=== PATIENT | female | born 1965 | race Caucasian/White ===

== ENCOUNTER → 2017-02-21 | Outpatient (CLI) | payer BC ==
[~2017-02-21] MED LIST: CALC-354 PO; DIGO0.2519 PO; HYDR-3419 PO; MULT-506 PO; OXYC-57 PO
[2017-02-21 17:53] LABS: URINE APPEARANCE CLEAR (CLEAR); URINE BILIRUBIN NEG (NEG); URINE COLOR YELLOW; URINE EPITHELIAL CELL AUTO >30 /lpf (0-5); URINE NITRITE NEG (NEG); URINE SPECIFIC GRAVITY 1.021 (1.000-1.030); UROBILINOGEN NEG (NEG)
[2017-02-21 18:05] LABS: BASO % 0.7 %; BASO ABS # 0.04 K/uL (0-0.2); COMPLETE YES; EOS % 0.8 %; IG% 0.2 %; LYMPH % 28.2 %; LYMPH ABS # 1.68 K/uL (1.2-3.4); MEAN CELL VOLUME 86.1 fL (80-100); MEAN CORPUSCULAR HEMOGLOBIN 29.6 pg (25-34); MEAN CORPUSCULAR HGB CONC 34.4 g/dl (32-36); MEAN PLATELET VOLUME 10.4 fL (7.4-10.4); MONO % 12.3 %; NEUT % 57.8 %; PLATELET COUNT 231 K/uL (130-400); RED BLOOD COUNT 4.53 M/uL (4.2-5.4); WHITE BLOOD COUNT 5.95 K/uL (4.8-10.8)
[2017-02-21 18:22] LABS: MANUAL MICROSCOPIC REQUIRED? NO; REVIEW REQ? NO
[2017-02-21 19:03] LABS: BLOOD UREA NITROGEN 12 mg/dl (7-18); BUN/CREATININE RATIO 15.1 (10-20); CARBON DIOXIDE 32 mmol/L (21-32); CHLORIDE 105 mmol/L (98-107); CREATININE 0.79 mg/dl (0.60-1.20); GLUCOSE 79 mg/dl (70-99); POTASSIUM 3.9 mmol/L (3.5-5.1); SODIUM 142 mmol/L (136-145)
== END | disposition home or self-care (01) ==
LOC: C.LABMFLN 14:06
PROVIDERS: ATTEND Family Medicine
DX: R19.00 Intra-abdominal and pelvic swelling, mass and lump, unspecified site (principal)

== ENCOUNTER → 2017-02-22 | Outpatient (CLI) | payer BC ==
--- NOTE | 2017-02-22 11:47 | DIAGNOSTIC IMAGING REPORT ---
PELVIC ULTRASOUND, TRANSABDOMINAL AND TRANSVAGINAL HISTORY: PELVIC MASS COMPARISON: None. FINDINGS: Uterus: Surgically absent. Right ovary: 2.5 x 1.2 x 2.3 cm. This demonstrates normal color flow. Left ovary: 2.1 x 1.6 x 1.4 cm. The demonstrates normal color flow. There is a 1 cm cyst within the left ovary. Miscellaneous:No pelvic free fluid. Within the right adnexa there is a solid and cystic 7.4 x 4.0 x 3.6 cm mass. IMPRESSION: A 7.4 x 3.6 x 4.0 cm complex mass within the right adnexa which appears separate from the right ovary. Follow-up contrast-enhanced abdomen and pelvis CT is recommended for further evaluation. Electronically signed by: Willy Wright M.D. 02/22/2017 2:06 PM Dictated Date/Time: 02/22/2017 11:43 AM
== END | disposition home or self-care (01) ==
LOC: C.ULTR 10:06
PROVIDERS: ATTEND Family Medicine
DX: R19.00 Intra-abdominal and pelvic swelling, mass and lump, unspecified site (principal)

== ENCOUNTER 2017-02-27 13:18 | Inpatient (IN) | payer BC ==
[~2017-02-27] VITALS: Ht 167.6 cm; Wt 46.7 kg
[~2017-02-27 13:18] MED LIST changes: -CALC-354 PO; -DIGO0.2519 PO; -HYDR-3419 PO; -MULT-506 PO; +NEOMYCIN SULFATE 500 MG TAB PO ONE; -OPTIRAY 320 IV PRN; -OXYC-57 PO
[2017-02-27 14:10] LABS: BASO % 0.4 %; BASO ABS # 0.02 K/uL (0-0.2); COMPLETE YES; EOS % 0.4 %; IG% 0.4 %; LYMPH % 13.9 %; LYMPH ABS # 0.71 K/uL (1.2-3.4); MEAN CELL VOLUME 87.5 fL (80-100); MEAN CORPUSCULAR HEMOGLOBIN 29.4 pg (25-34); MEAN CORPUSCULAR HGB CONC 33.6 g/dl (32-36); MONO % 8.4 %; NEUT % 76.5 %; PLATELET COUNT 235 K/uL (130-400); RED BLOOD COUNT 5.14 M/uL (4.2-5.4); WHITE BLOOD COUNT 5.11 K/uL (4.8-10.8)
[2017-02-27] MEDS ORDERED: NEOMYCIN SULFATE 500 MG TAB PO SCH (14:30)
[2017-02-27] MEDS ORDERED: SODIUM CHLORIDE 0.9% 1000ML 1,000 ML IV SCH (14:30)
[2017-02-27] MEDS ORDERED: MoRPHine SULFATE 2 MG/ML CARP IV PRN (14:30)
--- NOTE | 2017-02-27 14:35 | EMERGENCY ROOM VISIT NOTE ---
History First contact with patient: 13:30 Chief Complaint: ABDOMINAL PAIN Stated Complaint: PAIN IN RT PELVIC AREA, NAUSEA Nursing Triage Summary: pt having abd pain greater than [address] done this am referred to ER due to RLQ mass History of Present Illness The patient is a 51 year old female who presents to the Emergency Room with complaints of a right lower quadrant mass. The patient was sent here from the radiology department after having an outpatient CT scan of the abdomen and pelvis performed. The patient reports that she has noticed right lower quadrant pain for the past 2 months. She reports that it seemed to be associated with her ovulation cycle. The patient has a history of partial hysterectomy. She has both ovaries. The patient reports that the pain has now become more constant over the past month. The patient reports that she could feel a mass in the right lower quadrant region to weeks ago. After the patient underwent an enhanced CT of the abdomen and pelvis approximately 2 hours ago, she was advised to come to the emergency department for further reevaluation and surgical consultation. The patient reports that she generally does not have any significant pain. The patient reports that she has had nausea, vomiting and diarrhea over the past 24 hours. She has not noticed any blood in the stool. She denies any fevers or chills. She currently denies any pain. Review of Systems HEENT: Denies dizziness, visual problems, hearing loss, tinnitus. Denies difficulty swallowing or oral lesions. PULMONARY: Denies cough, shortness of breath, sputum production or hemoptysis. CARDIOVASCULAR: Denies chest pain, palpitations, dyspnea on exertion, orthopnea or peripheral edema. GASTROINTESTINAL: See history of present illness. GENITOURINARY: Denies dysuria, frequency, urgency or nocturia. NEUROLOGIC: Denies history of epilepsy, CVA, TIA or chronic headaches. MUSCULOSKELETAL: Denies history of joint tenderness/swelling. SKIN: Denies rashes or lesions. PSYCHIATRIC: Denies history of depression or mental illness. ENDOCRINE: Denies history of diabetes or thyroid disorders. Past Medical/Surgical History Medical Problems: (1) Chr Blood Loss Anemia (2) Neutropenia, Unspecified (3) Right lower quadrant abdominal mass (4) Supraventricular Tachycardia (5) Uterine fibroid Surgical Problems: (1) History of partial hysterectomy Family History FH: cancer FH: hypertension Social History Smoking Status: Never Smoker Alcohol Use: occasionally Marital Status: Occupation Status: employed Allergies Coded Allergies: No Known Allergies (Unverified , 4/19/17) Physical Exam Vital Signs Date Time Temp Pulse Resp B/P Pulse Ox O2 Delivery O2 Flow Rate FiO2 02/27/17 13:24 36.7 73 18 153/96 99 Room Air Physical Exam CONSTITUTIONAL: Healthy and well nourished. Alert and oriented X 3 with positive affect. She does not appear in any acute distress. HEENT: Normocephalic, atraumatic. Pupils equal, round and reactive. NECK: Full active range of motion without discomfort. RESPIRATORY: Clear to auscultation bilaterally with no wheezing, crackles, rhonchi or stridor. CARDIOVASCULAR: Regular rate and rhythm with no murmurs, rubs or gallops. GASTROINTESTINAL: Bowel sounds present in all quadrants. Bowel sounds are hyperactive. The patient has minimal right lower quadrant tenderness to palpation without guarding, rebound or palpable pulsatile masses. Negative psoas/obturator sign. Negative heel tap. Negative Rovsing sign. Negative CVA tenderness. MUSCULOSKELETAL: Full range of motion of all joints without discomfort. INTEGUMENTARY: No rash or other significant dermatologic conditions noted. HEMATOLOGIC: No ecchymosis or petechiae noted. NEUROLOGIC: No focal neurologic deficits noted. Medical Decision & Procedures Laboratory Results 02/27/17 14:00 Red Blood Count 5.14, Mean Corpuscular Volume 87.5, Mean Corpuscular Hemoglobin 29.4, Mean Corpuscular Hemoglobin Concent 33.6, Mean Platelet Volume 10.0, Neutrophils (%) (Auto) 76.5, Lymphocytes (%) (Auto) 13.9, Monocytes (%) (Auto) 8.4, Eosinophils (%) (Auto) 0.4, Basophils (%) (Auto) 0.4, Neutrophils # (Auto) 3.91, Lymphocytes # (Auto) 0.71, Monocytes # (Auto) 0.43, Eosinophils # (Auto) 0.02, Basophils # (Auto) 0.02 Test 02/27/17 14:00 White Blood Count 5.11 K/uL (4.8-10.8) Red Blood Count 5.14 M/uL (4.2-5.4) Hemoglobin 15.1 g/dL (12.0-16.0) Hematocrit 45.0 % (37-47) Mean Corpuscular Volume 87.5 fL (80-100) Mean Corpuscular Hemoglobin 29.4 pg (25-34) Mean Corpuscular Hemoglobin Concent 33.6 g/dl (32-36) Platelet Count 235 K/uL (130-400) Mean Platelet Volume 10.0 fL (7.4-10.4) Neutrophils (%) (Auto) 76.5 % Lymphocytes (%) (Auto) 13.9 % Monocytes (%) (Auto) 8.4 % Eosinophils (%) (Auto) 0.4 % Basophils (%) (Auto) 0.4 % Neutrophils # (Auto) 3.91 K/uL (1.4-6.5) Lymphocytes # (Auto) 0.71 K/uL (1.2-3.4) Monocytes # (Auto) 0.43 K/uL (0.11-0.59) Eosinophils # (Auto) 0.02 K/uL (0-0.5) Basophils # (Auto) 0.02 K/uL (0-0.2) RDW Standard Deviation 40.6 fL (36.4-46.3) RDW Coefficient of Variation 12.6 % (11.5-14.5) Immature Granulocyte % (Auto) 0.4 % Immature Granulocyte # (Auto) 0.02 K/uL (0.00-0.02) Erythrocyte Sedimentation Rate 30 mm/hr (0-21) ED Course Patient history and physical exam were performed. Nurse's notes were reviewed. Vital signs were reviewed and were normal. I did review the patient's most recent ultrasound and CT study. She was seen by her family doctor with an ultrasound performed on 02/22/17, showing a 7.4 x 3.6 x 4 cm complex mass within the right adnexa that appears separate from the right ovary. An enhanced CT scan was recommended. Her CT scan was done a few hours ago, showing an approximate 5.5 cm solid and cystic mass lesion in the right ventricle pelvis along the inferior margin of the cecum. A normal appendix is not identified, and is discrete from the right ovary. An appendiceal neoplasm, primary colonic lesion or focus of metastatic disease, as well as chronically ruptured appendix with a complex/multiloculated abscess or possible differential considerations. The case was then discussed with Dr. Youngblood's PA, who reviewed CT results and came to the emergency department to examine the patient. The patient will be admitted for IV antibiotics and surgery tomorrow. Please see their dictation for further treatment and final disposition. The patient refused any additional analgesics or needs prior to admission. Medical Decision Patient presents with abdominal abnormal CT scan showing a chronically ruptured appendix versus neoplastic process. Patient will require surgical intervention. Differentials include another GI process, neoplasm, metastatic process, chronically ruptured appendix or other pelvic mass. The radiologist does not feel that this mass originates from the ovary, but certainly an ovarian mass or endometrioma is considered. Impression Primary Impression: Right lower quadrant abdominal mass Departure Information Referrals Quoc Sloan M.D. (PCP) Patient Instructions My [facility]
--- NOTE | 2017-02-27 14:54 | History and Physical ---
History & Physical Date & Time of Service: Feb 27, 2017 at 14:39 Chief Complaint: Pain In Rt Pelvic Area, Nausea Primary Care Physician: Quoc Sloan M.D. History of Present Illness 51 y/o female with some vague abdominal pain about 1 month ago began to notice this more constant about a week later. She saw her PCP last week who began evaluation. She had an ultrasound last week then today outpatient CT scan. Yesterday she had a little more pain, and new N/V x1 and diarrhea. No fevers or chills. No change in bowel habits. She had colonoscopy within the past 1-2 years in [place]. She did later recall having "the flu" about a month ago. She had fevers, chills and fatigue and spent several days in bed. No family history of colon cancer. Past Medical/Surgical History Past Medical: no ongoing problems Surgical history: Pelvic exploration followed later by Hysterectomy Family History FH: cancer FH: hypertension Social History Smoking Status: Never Smoker Marital Status: Occupational Status: employed Allergies Coded Allergies: No Known Allergies (Unverified , 02/27/17) Review of Systems Constitutional: No chills, No fever Respiratory: No cough, No shortness of breath Abdomen: + diarrhea, + nausea, + pain, + vomiting, No GI bleeding Physical Exam Vital Signs Date Time Temp Pulse Resp B/P Pulse Ox O2 Delivery O2 Flow Rate FiO2 02/27/17 13:24 36.7 73 18 153/96 99 Room Air General Appearance: WD/WN, no apparent distress ENT: normal ENT inspection Neck: supple Respiratory/Chest: lungs clear, normal breath sounds Cardiovascular: regular rate, rhythm Abdomen/GI: soft, + tenderness (mild over 4cm mass in RLQ) Extremities/Musculoskelatal: normal inspection Neurologic/Psych: alert, normal mood/affect Skin: normal color, warm/dry Diagnostics Laboratory Results Results Past 24 Hours Test 02/27/17 14:00 Range/Units White Blood Count 5.11 4.8-10.8 K/uL Red Blood Count 5.14 4.2-5.4 M/uL Hemoglobin 15.1 12.0-16.0 g/dL Hematocrit 45.0 37-47 % Mean Corpuscular Volume 87.5 80-100 fL Mean Corpuscular Hemoglobin 29.4 25-34 pg Mean Corpuscular Hemoglobin Concent 33.6 32-36 g/dl Platelet Count 235 130-400 K/uL Mean Platelet Volume 10.0 7.4-10.4 fL Neutrophils (%) (Auto) 76.5 % Lymphocytes (%) (Auto) 13.9 % Monocytes (%) (Auto) 8.4 % Eosinophils (%) (Auto) 0.4 % Basophils (%) (Auto) 0.4 % Neutrophils # (Auto) 3.91 1.4-6.5 K/uL Lymphocytes # (Auto) 0.71 1.2-3.4 K/uL Monocytes # (Auto) 0.43 0.11-0.59 K/uL Eosinophils # (Auto) 0.02 0-0.5 K/uL Basophils # (Auto) 0.02 0-0.2 K/uL RDW Standard Deviation 40.6 36.4-46.3 fL RDW Coefficient of Variation 12.6 11.5-14.5 % Immature Granulocyte % (Auto) 0.4 % Immature Granulocyte # (Auto) 0.02 0.00-0.02 K/uL Erythrocyte Sedimentation Rate 30 0-21 mm/hr Diagnostic Radiology ADDENDUM ADDENDUM: The lesion in the right lower quadrant could also represent a chronically ruptured appendix with a complex/multiloculated abscess. Again, surgical consultation will be required. Electronically signed by: Quoc Brown M.D. 02/27/2017 12:34 PM Dictated Date/Time: 02/27/2017 12:[address] SCAN OF THE ABDOMEN AND PELVIS WITH IV CONTRAST CLINICAL HISTORY: Follow-up pelvic mass. COMPARISON STUDY: Pelvic ultrasound dated 02/22/2017. TECHNIQUE: Following the IV administration of 92 cc of Optiray 320, CT scan of the abdomen and pelvis is performed from the lung bases to the proximal femora. Images are reviewed in the axial, sagittal, and coronal planes. IV contrast was administered without complication. Automated dose control exposure was utilized. CT DOSE: 280.68 mGycm FINDINGS: Lung bases: The heart is normal in size and without pericardial effusion. The lung bases are clear. Liver: The contrast-enhanced liver is normal in size, contour, and attenuation. Hepatic cyst in the right lobe measures 1.2 cm. Additional subcentimeter hepatic hypodensities also likely represent cysts but are too small for definitive characterization. Fatty infiltration is seen adjacent to the falciform ligament. There is no intrahepatic biliary ductal dilatation. The hepatic veins and portal veins are patent. Gallbladder: Unremarkable. Spleen: Normal in size and attenuation. Pancreas: Unremarkable. Adrenal glands: Unremarkable. Kidneys: The contrast enhanced kidneys are normal in size and without hydronephrosis. The kidneys enhance symmetrically. There is a 3 mm nonobstructing calculus in the right renal pelvis seen on image #159. Abdominal vasculature: The abdominal aorta is normal in course and caliber. Bowel: The small bowel and colon are normal in course and caliber. There is mild sigmoid diverticulosis without CT evidence of acute diverticulitis. A normal appendix is not identified. There is a solid and cystic mass lesion identified in the right lower quadrant along the inferior margin of the cecum. This is best seen on axial image #284, and measures approximately 5.5 x 5.5 x 4.5 cm. Small calcifications are noted in image #304. This is discrete from the right ovary which is seen on axial image #322. Peritoneum: There is no intraperitoneal free air or abdominal ascites. A fat-containing umbilical hernia is identified. Lymphadenopathy: There are prominent subcentimeter mesenteric and retroperitoneal lymph nodes. These are not pathologically enlarged by size criteria. Pelvic viscera: The bladder is normal as imaged. The uterus is surgically absent. There are small left ovarian follicles. Skeletal structures: No lytic or blastic lesions are seen. IMPRESSION: 1. There is approximately 5.5 cm solid and cystic mass lesion identified in the right ventral pelvis along the inferior margin of the cecum. This corresponds to the mass lesion seen by ultrasound on 02/22/2017 and is concerning for neoplasm. A normal appendix is not identified, and this lesion is discrete from the right ovary. Given the location and appearance an appendiceal neoplasm is a top differential consideration. A primary colonic lesion or focus of metastatic disease could also have this appearance. Surgical consultation is advised as tissue sampling will be required for definitive characterization. 2. There is no clear evidence of metastatic disease in the abdomen or pelvis. 3. Mild sigmoid diverticulosis without CT evidence of acute diverticulitis. 4. Nonobstructing right renal calculus. 5. Additional findings as above. Electronically signed by: Quoc Brown M.D. 02/27/2017 12:25 PM Dictated Date/Time: 02/27/2017 12:14 PM Impression Assessment and Plan RLQ lesion/phlegmon CT shows possible neoplasm vs chronic ruptured appendicitis. Her history is more consistent with the appendicitis. She does not have any acute abdominal findings, she had a few bites of lunch at 12:[address]. Will admit for IV antibiotics, bowel prep and plan for exploratory laparotomy tomorrow morning by Dr. Youngblood. VTE Prophylaxis VTE Risk Assessment Done? Y/N: Yes Risk Level: Low
[2017-02-27 15:04] LABS: BUN/CREATININE RATIO 19.4 (10-20); C-REACTIVE PROTEIN 2.89 mg/dl (0-0.29); CALCIUM 9.8 mg/dl (8.5-10.1); CREATININE 0.93 mg/dl (0.60-1.20); POTASSIUM 3.8 mmol/L (3.5-5.1)
[2017-02-27] MEDS ORDERED: DIGO0.2519 PO (15:06)
[2017-02-27] MEDS ORDERED: MULT-506 PO (15:07)
[2017-02-27] MEDS ORDERED: CALC-354 PO (15:07)
[2017-02-27] MEDS ORDERED: PIPERACILL/TAZOBAC CONSULT ACTIVE PRN (15:15)
--- NOTE | 2017-02-27 15:18 | DIAGNOSTIC IMAGING REPORT ---
CHEST ONE VIEW PORTABLE HISTORY: colon mass/phlegmon COMPARISON: None. FINDINGS: The lungs are clear. Cardiac silhouette is normal in size. No pleural effusions. No pneumothorax. Tortuous thoracic aorta likely result of the mild dextroscoliosis of the thoracic spine. IMPRESSION: No acute process. Electronically signed by: Willy Wright M.D. 02/27/2017 3:16 PM Dictated Date/Time: 02/27/2017 3:14 PM
--- NOTE | 2017-02-27 16:31 | SURGERY PROGRESS NOTE ---
DATE: 02/27/2017 DATE: 02/27/2017. Seen in the ER. SUMMARY: Adding onto the complete evaluation by consultation by Steven Damon. Nerissa is resting comfortably at this time. Her family is at the bedside. She reiterated to me her history which is probably a month ago she had some jabbing pain towards the right lower quadrant with associated chills and fever that progressively got to the point that was bearable. She had some diarrhea, but last 24-48 hours progressively gotten worse with the diarrhea and the discomfort. She denies any chills in the last 24 hours. Her past medical history was complicated by a hysterectomy in approximately 2013 where at that time according to the patient ended up having difficulty with the bowel and had bleed and looked like it was a protracted course. Other than that, her past history is pretty much unremarkable. Her vitals showed her temperature of 36.7, pulse 72, respirations 18, blood pressure 135/70. O2 sats 96 on room air. Laboratory dailey white count is 5.11. There is no left shift. Sed rate is up consisting most likely with an inflammatory process in the right lower quadrant, hemoglobin 15.1. Chemistries: BUN is 18, creatinine 0.93, C-reactive protein as high as 289. The abdomen is very thin, it is not distended. She does have guarding and tenderness in the right lower quadrant with outline of a palpable mass that was confirmed by CAT scan which showed it to be mentioned about 5.5 cm solid cystic mass in the right ventral pelvis inferior to the cecum does not involve the ovary. There is no obvious gross lymph nodes in the mesentery. At this point, I explained to the patient that she will need resection. Most likely this is a ruptured appendix. The only concern would be if this was a mucocele of the appendix. Having said that, I think the patient had eaten this morning. We will admit her to the hospital, give her IV fluids and plan to proceed with surgery tomorrow. Will plan for an appendectomy, but she is well aware we may need to take the terminal ileum and right colon if more disease than anticipated is found. Risks and complications of this was explained to the patient and we will proceed accordingly. We will also give her some oral antibiotics on top of the IV antibiotics.
[2017-02-27 16:45] VITALS: BP 138/84; PULSE 78; TEMP 37.2; Ht 167.6 cm; Wt 46.7 kg
[2017-02-27] MEDS: LACTATED RINGER'S 1000ML 1,000 ML IV SCH (17:59)
[2017-02-27] MEDS ORDERED: ERYTHROMYCIN ETHYLSUCCINATE 400 MG TAB PO SCH (18:00)
[2017-02-27] MEDS: PIPERACILL/TAZOBAC IV 3.375 GM in DEXTROSE 5% 100ML 100 ML IV SCH (18:30)
--- NOTE | 2017-02-27 18:31 | Anesthesiology Progress Note ---
Anesthesia Progress Note Date of Service Feb 27, 2017. Progress Notes The patient is a 51 y/o female scheduled for an Ex Lap tomorrow with Dr. Youngblood. She has complained of abdominal pain, N/V, and diarrhea for the past few weeks. She was found to have a R pelvic mass on CT. Other PMH includes hx SVT from five years ago that is now controlled with Digoxin. She has had no problems with anesthesia. She has good functional status. EKG shows NSR with nonspecific ST/T wave abnormality. CBC and electrolytes are normal. On exam the patient has good neck ROM with MP 1 view. Teeth are intact with some caps. Lungs are clear. Heart is RRR. Carotids are negative for bruits. She is an ASA 2. She was consented to general anesthesia with ETT. She was counseled to remain NPO except for sips of water with meds.
[2017-02-27] MEDS: NEOMYCIN SULFATE 500 MG TAB PO SCH ×2 (19:03→19:57)
[2017-02-27] MEDS ORDERED: ERYTHROMYCIN DELAYED RELEASE 250 MG CAP PO ONE ×2 (20:00→22:00)
[2017-02-27] MEDS ORDERED: NURSING VERBAL MED ORDER ONE (20:15)
[2017-02-27] MEDS: DIGOXIN 0.25 MG TAB PO SCH (21:30)
[2017-02-27 23:11] VITALS: BP 144/76; PULSE 66; TEMP 37.2; O2SAT 97
[2017-02-28] VITALS (7 sets, daily range): BP systolic 104–164; BP diastolic 65–90; PULSE 69–88; TEMP 36.5–37; O2SAT 95–100
[2017-02-28] MEDS: PIPERACILL/TAZOBAC IV 3.375 GM in DEXTROSE 5% 100ML 100 ML IV SCH ×4 (00:18→19:43)
[2017-02-28] MEDS ORDERED: NEOMYCIN SULFATE 500 MG TAB PO ONE (02:00)
[2017-02-28] MEDS ORDERED: ERYTHROMYCIN ETHYLSUCCINATE 400 MG TAB PO SCH (02:00)
[2017-02-28] MEDS ORDERED: ERYTHROMYCIN DELAYED RELEASE 250 MG CAP PO ONE (02:00)
[2017-02-28] MEDS: LACTATED RINGER'S 1000ML 1,000 ML IV SCH (02:36)
[2017-02-28] MEDS: ONDANSETRON INJ 2 MG/ML 2 ML VIAL IV PRN (05:23)
[2017-02-28 06:41] LABS: BUN/CREATININE RATIO 12.2 (10-20); CALCIUM 8.7 mg/dl (8.5-10.1); CREATININE 0.87 mg/dl (0.60-1.20); POTASSIUM 3.7 mmol/L (3.5-5.1)
--- NOTE | 2017-02-28 07:17 | SURGERY PROGRESS NOTE ---
DATE: 02/28/2017 Nerissa overall had a good night although she did have diarrhea, but she has had it before. She is really not complaining of significant pain except in the right lower quadrant. Her last vitals showed a temperature of 37.2, pulse 66, respirations 12, blood pressure 144/76. I\T\O's she had 600 mL of urine yesterday. No bowel movements have been reported, but she states she has been having diarrhea. At this point we will proceed as planned for surgery today. Risks and complications were explained to her including bleeding, infection and she would like to proceed with surgery as outlined yesterday.
[2017-02-28] MEDS ORDERED: LIDOCAINE/EPINEPHRINE 1% 20 ML VIAL ONE (08:12)
[2017-02-28] MEDS ORDERED: BUPIVACAINE/EPINEPHRINE 0.5% MPF 1:200,000 30 ML VIAL ONE (08:12)
[2017-02-28] MEDS ORDERED: BACITRACIN 50000 UNIT VIAL ONE (08:13)
[2017-02-28] MEDS ORDERED: FENTANYL CITRATE INJ 50 MCG/1 ML 2 ML VIAL ONE (09:16)
[2017-02-28] MEDS ORDERED: MIDAZOLAM HCL 1 MG/ML 2ML VIAL ONE (09:17)
[2017-02-28] MEDS ORDERED: ONDANSETRON INJ 2 MG/ML 2 ML VIAL ONE ×2 (09:26→09:35)
[2017-02-28] MEDS ORDERED: EpHEDrine SULFATE INJ 50 MG/ML AMP IV PRN (09:30)
[2017-02-28] MEDS ORDERED: ATROPINE SULFATE 0.1 MG/ML 5ML SYR IV PRN (09:30)
[2017-02-28] MEDS ORDERED: PHENYLEPHRINE 100MCG/ML 5ML SYR IV PRN (09:30)
[2017-02-28] MEDS ORDERED: ONDANSETRON INJ 2 MG/ML 2 ML VIAL IV PRN (09:30)
[2017-02-28] MEDS ORDERED: LIDOCAINE HCL 2% 2 ML VIAL (20MG/ML) ONE (09:35)
[2017-02-28] MEDS ORDERED: ROCURONIUM BROMIDE 10 MG/ML 5 ML VIAL ONE (09:35)
[2017-02-28] MEDS ORDERED: NEOSTIGMINE METHYLSULFATE 5 MG/5 ML SYR ONE (09:35)
[2017-02-28] MEDS ORDERED: DEXAMETHASONE SOD INJ 4 MG/ML VIAL ONE ×2 (09:35→10:24)
[2017-02-28] MEDS ORDERED: GLYCOPYRROLATE INJ 0.2 MG/ML VIAL ONE (09:35)
[2017-02-28] MEDS ORDERED: LARYING-O-JET KIT (LTA) EXT ONE ×2 (09:35)
[2017-02-28] MEDS ORDERED: PROPOFOL IV EMULSION 10 MG/ML 20 ML VIAL IV ONE (09:35)
[2017-02-28] MEDS ORDERED: SUCCINYLCHOLINE CHLORIDE 20 MG/ML 10 ML VIAL IV ONE (09:53)
[2017-02-28] MEDS ORDERED: KETAMINE HCL INJ 50 MG/ML 10 ML VIAL ONE (09:54)
[2017-02-28] MEDS ORDERED: METOCLOPRAMIDE HCL INJ 5 MG/ML 2 ML VIAL ONE (10:24)
[2017-02-28] MEDS ORDERED: DiphenhydrAMINE HCL 50 MG/ML VIAL ONE (10:24)
[2017-02-28] MEDS ORDERED: HYDROmorphone INJ 2 MG/ML SYR/VIAL ONE (10:46)
[2017-02-28] MEDS ORDERED: EpHEDrine SULFATE INJ 50 MG/ML AMP ONE (11:29)
[2017-02-28] MEDS ORDERED: NALOXONE HCL 0.4 MG/1 ML VIAL/CARP IV PRN (12:00)
--- NOTE | 2017-02-28 12:04 | [facility] Post Operative Brief Note ---
Immediate Operative Summary Operative Date Feb 28, 2017. Pre-Operative Diagnosis Complex mass right lower quadrant Post-Operative Diagnosis Mucinous adenocarcinoma of appendix Procedure(s) Performed Right radical colectomy Surgeon Dr Youngblood [employer] Estate [employer] Manager Surgeon(s) Delfina Avilez PA-C/ Giovanny Damon PA-C Estimated Blood Loss 20ml Findings hard mass 5cm cecal base non perforated Specimens Culture #1 urine for culture and sensitivity Frozen section #1 right radical colectomy " resection terminal ileum ascending colon to transverse colon" A. Omental Implant B. Right colon peritoneum, long sutureon top of external illiac artery, short suture on internal illiac artery Drains 1/4 inch martin sub cut
[2017-02-28] MEDS: HYDROmorphone INJ 2 MG/ML SYR/VIAL IV PRN ×2 (12:20→12:25)
[2017-02-28] MEDS: MoRPHine SULFATE 1 MG/ML 50 ML PCA CASS IV PRN ×2 (12:25→13:04)
[2017-02-28] MEDS ORDERED: HYDROmorphone INJ 1 MG/ML SYR ONE (12:26)
--- NOTE | 2017-02-28 12:39 | Anesthesiology Progress Note ---
Anesthesia Post Op Note Date & Time Feb 28, 2017 at 12:38 Vital Signs Pain Intensity: 6 Vital Signs Past 12 Hours Date Time Temp Pulse Resp B/P Pulse Ox O2 Delivery O2 Flow Rate FiO2 02/28/17 12:35 90 12 110/70 100 Nasal Cannula 4 02/28/17 12:25 75 12 111/58 100 Nasal Cannula 4 02/28/17 12:15 86 12 116/64 100 Mask 10 02/28/17 12:05 76 12 111/52 100 Mask 10 02/28/17 11:56 36.1 82 12 105/51 100 Mask 10 02/28/17 07:41 36.5 69 18 111/72 100 Room Air 02/28/17 07:30 Room Air Notes Mental Status: alert / awake / arousable, participated in evaluation Pt Amnestic to Procedure: Yes Nausea / Vomiting: adequately controlled Pain: adequately controlled Airway Patency, RR, SpO2: stable & adequate BP & HR: stable & adequate Hydration State: stable & adequate Anesthetic Complications: no major complications apparent Pt doing well. Pain tolerable.
--- NOTE | 2017-02-28 13:06 | OPERATIVE REPORT ---
DATE OF OPERATION: 02/28/2017 PREOPERATIVE DIAGNOSIS: Mass right lower quadrant and possible ruptured appendix. 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 PROCEDURE: Right radical colectomy. SURGEON: Dr. Youngblood. TRUCK DRIVER SALESPERSON: Steven Damon PA-C and Delfina Avilez PA-C. OPERATION AND FINDINGS: SUMMARY: The patient was brought into the operating room theater. The abdomen was prepped with Betadine scrubbing solution and properly draped. I used a Vu catheter. The patient had previous abdominal surgery through lower midline incision and also Pfannenstiel incision. We used the upper aspect of the midline incision and going above the umbilicus deepened through subcutaneous tissue. We entered the peritoneal cavity. There really were no true adhesions identified. At this point, there was no free fluid in the belly. The omentum did not show any evidence of any implants. We then went on and felt down towards the right lower quadrant were hard mass was stuck against the wall of the abdomen just towards the psoas and also towards the iliac vessel area. We at this point then tried to elevate this up by first dividing the white line of Toldt on the cecal area, taking it down and also towards the terminal ileum to that area and try to elevate the mass from the surrounding structures where we got into a plane that appeared to be separate and possibly inflammatory response to this mass that once we delivered into the wound we identified probably a 5 cm very hard mass coming off at the base of the cecum. The appendix could not be visualized. The terminal ileum was free of any disease. We at this point then took our dissection around the right colon and hepatic flexure thinking that this may be a malignancy as somewhat we had suspected it preop, therefore we proceeded with a right radical colectomy. We divided the transverse colon right of the middle colic using a ROSANA stapler. We scored the mesentery to the root of mesentery avoiding the duodenum and taking this down to about 6 inches from the ileocecal valve where we divided the terminal ileum. We then ligated the vessels of the right colic, doubly ligating it. We then were able to take the specimen and sent to pathology. In the meantime, we closed the mesentery prior to doing our anastomosis, which was done by oversewing the staple line with 3-0 interrupted silk, then doing a [id number] anastomosis with 3-0 silk outer layer, 3-0 chromic inner layer. Anastomosis was checked for patency and appeared satisfactory and could accommodate 2 fingers. The mesentery was closed completely. The path report came back that this was probably a polypoid lesion with some mucinous maybe at the appendix consistent with an adenocarcinoma. We asked that as far as the strict adherence to the peritoneum laterally I was not sure that this conceivably could be a cancer or not, therefore could be all related to inflammatory changes, but I went on and took out a segment approximately 5 cm x 5 cm stripping the peritoneum pretty much at the takeoff of the iliac vessel and the common iliac all the way down up to the internal iliac into the external iliac laterally well above the psoas area. What we took out was pretty much all scarred in peritoneum, but the plane of dissection appeared to be free flow and not grossly involve any inflammatory response. Once we had this mobilized, we then marked it with a long suture indicating that this was the distal line of resection of this peritoneum onto the external iliac. The smaller silk suture was down towards the internal iliac area and common iliac. The peritoneum would be easily appreciated by some induration and the undersurface was free of any induration. The area was then checked for hemostasis and appeared satisfactory. We avoided the ureter throughout the whole procedure. We ran the mesentery again and there was no lymph node appreciated. The omentum had no implants. The liver was palpated. There were no implants. The pelvic was also palpated. Down the pelvic area there was no evidence of any mucinous or any implants. The right ovary that was barely palpable was seen to be down in the pelvic area. The left ovary I could not palpate. The wound was then closed with #1 PDS interrupted suture after we positioned the NG tube in the stomach, we then closed the skin with luciano placing a quarter-inch Josiah underneath for drainage of the subcutaneous tissue attached 2-0 silk suture. Dressing was applied. The procedure was tolerated well by the patient. Estimated blood loss approximately 20 mL. The patient was taken to recovery room in good condition. I attest to the content of the Intraoperative Record and any orders documented therein. Any exceptions are noted below. RENETTA
[2017-02-28] MEDS: D5W AND 1/2NSS + 20MEQ KCL 1,000 ML IV SCH ×2 (13:43→22:54)
[2017-02-28] MEDS: SODIUM CHLORIDE 0.9% 1000ML 1,000 ML IV SCH (13:52)
[2017-02-28] MEDS ORDERED: NURSING DECISION MEDICATION ORDER SCH (14:00)
[2017-02-28] MEDS ORDERED: CHLORASEPTIC 1.4% SOLN 180 ML BTL MT PRN (14:15)
[2017-02-28] MEDS: DIGOXIN 0.25 MG TAB PO SCH (16:10)
[2017-02-28] MEDS ORDERED: NURSING VERBAL MED ORDER ONE (23:30)
[2017-03-01] VITALS (7 sets, daily range): BP systolic 159–170; BP diastolic 80–95; PULSE 64–76; TEMP 36.7–37.5; O2SAT 95–98
[2017-03-01] MEDS ORDERED: NURSING VERBAL MED ORDER ONE (01:15)
[2017-03-01] MEDS: PIPERACILL/TAZOBAC IV 3.375 GM in DEXTROSE 5% 100ML 100 ML IV SCH (04:02)
[2017-03-01] MEDS: MoRPHine SULFATE 1 MG/ML 50 ML PCA CASS IV PRN ×2 (07:23→23:05)
[2017-03-01] MEDS ORDERED: HEPARIN SOD 5000 UNIT/0.5 ML CARP SQ ONE (07:28)
--- NOTE | 2017-03-01 07:59 | SURGERY PROGRESS NOTE ---
DATE: 03/01/2017 Nerissa is alert, coherent, with the expected abdominal discomfort. She is 1st postoperative day status post right radical colectomy. Intraoperative findings were discussed with the patient including the diagnosis, that this is a malignancy. Her last vitals showed a temperature of 37.1, pulse 64, respirations 17, blood pressure 159/88. I\T\O, she has put out 1375 urine overnight, we will cut the IV down. The abdomen is soft, it is not distended. Slight dressing reba from the subcutaneous drain, we will change the dressing. The NG has minimal output. With this, we will discontinue the NG tube, start on clear liquids sparingly, increase her activity, discontinue the Vu, start her on heparin every 12 hours subcu, and also discuss with her that Dr. Owens from [facility] will be covering the weekend.
--- NOTE | 2017-03-01 08:14 | Anesthesiology Progress Note ---
Anesthesia Post Op Note Date & Time Mar 01, 2017 at 08:12 Vital Signs Pain Intensity: 1.0 Vital Signs Past 12 Hours Date Time Temp Pulse Resp B/P Pulse Ox O2 Delivery O2 Flow Rate FiO2 03/01/17 07:14 37.1 64 17 159/88 98 Room Air 03/01/17 03:24 37.2 70 12 164/90 97 Nasal Cannula 2.5 03/01/17 01:15 Nasal Cannula 2.0 02/28/17 23:50 37.0 84 12 164/90 98 Nasal Cannula 2.0 Notes Mental Status: alert / awake / arousable, participated in evaluation Pt Amnestic to Procedure: Yes Nausea / Vomiting: adequately controlled Pain: adequately controlled Airway Patency, RR, SpO2: stable & adequate BP & HR: stable & adequate Hydration State: stable & adequate Anesthetic Complications: no major complications apparent
[2017-03-01 08:26] LABS: BUN/CREATININE RATIO 12.3 (10-20); CREATININE 0.71 mg/dl (0.60-1.20); POTASSIUM 4.2 mmol/L (3.5-5.1)
[2017-03-01] MEDS: D5W AND 1/2NSS + 20MEQ KCL 1,000 ML IV SCH ×2 (08:33→18:47)
[2017-03-01 08:35] LABS: CALCIUM 9.2 mg/dl (8.5-10.1)
[2017-03-01 09:17] LABS: INR 1.1 (0.9-1.1); PARTIAL THROMBOPLASTIN RATIO 1.1; PROTHROMBIN TIME (PATIENT) 11.9 SECONDS (9.0-12.0)
[2017-03-01 09:25] LABS: BASO % 0.3 %; BASO ABS # 0.04 K/uL (0-0.2); COMPLETE YES; HEMATOCRIT 41.8 % (37-47); IG% 0.7 %; LYMPH ABS # 0.62 K/uL (1.2-3.4); MEAN CELL VOLUME 86.4 fL (80-100); MEAN CORPUSCULAR HEMOGLOBIN 29.8 pg (25-34); MEAN CORPUSCULAR HGB CONC 34.4 g/dl (32-36); MEAN PLATELET VOLUME 10.4 fL (7.4-10.4); MONO % 3.8 %; NEUT % 91.2 %; PLATELET COUNT 207 K/uL (130-400); PLT ESTIMATE NORMAL; RED BLOOD COUNT 4.84 M/uL (4.2-5.4); WHITE BLOOD COUNT 15.35 K/uL (4.8-10.8)
[2017-03-01] MEDS: HEPARIN SOD 5000 UNIT/0.5 ML CARP SQ SCH ×2 (10:35→20:32)
[2017-03-01] MEDS: SODIUM CHLORIDE 0.9% 1000ML 1,000 ML IV SCH (11:57)
[2017-03-01] MEDS: PANTOprazole INJ 40 MG in SYRINGE 0 ML IV SCH (12:03)
[2017-03-01] MEDS ORDERED: HEPARIN SOD 5000 UNIT/0.5 ML CARP SQ SCH (14:00)
[2017-03-01] MEDS: DIGOXIN 0.25 MG TAB PO SCH (16:10)
[2017-03-02] VITALS (9 sets, daily range): BP systolic 93–168; BP diastolic 82–98; PULSE 54–73; TEMP 36.5–37.1; O2SAT 96–99
[2017-03-02] MEDS: D5W AND 1/2NSS + 20MEQ KCL 1,000 ML IV SCH ×2 (07:06→19:22)
[2017-03-02] MEDS: MoRPHine SULFATE 1 MG/ML 50 ML PCA CASS IV PRN ×3 (07:09→22:49)
[2017-03-02 07:40] LABS: COMPLETE YES; HEMATOCRIT 37.8 % (37-47); IG% 0.2 %; LYMPH ABS # 0.79 K/uL (1.2-3.4); MEAN CELL VOLUME 87.7 fL (80-100); MEAN CORPUSCULAR HEMOGLOBIN 29.9 pg (25-34); MEAN CORPUSCULAR HGB CONC 34.1 g/dl (32-36); MEAN PLATELET VOLUME 10.2 fL (7.4-10.4); MONO % 6.4 %; NEUT % 87.4 %; PLATELET COUNT 217 K/uL (130-400); RED BLOOD COUNT 4.31 M/uL (4.2-5.4)
[2017-03-02 09:24] LABS: BUN/CREATININE RATIO 16.5 (10-20); CALCIUM 8.8 mg/dl (8.5-10.1); CREATININE 0.63 mg/dl (0.60-1.20); POTASSIUM 4.3 mmol/L (3.5-5.1)
[2017-03-02] MEDS: HEPARIN SOD 5000 UNIT/0.5 ML CARP SQ SCH ×2 (09:31→21:25)
--- NOTE | 2017-03-02 10:46 | Surgery Progress Note ---
Surgery Progress Note Date of Service Mar 02, 2017. Subjective Post OP Day: 2 + feeling well F/U S/P right colectomy POD 2, pt is doing fine, passed some gas, good control pain, pt denies nausea, no vomiting. Objective Vital Signs: Date Time Temp Pulse Resp B/P Pulse Ox O2 Delivery O2 Flow Rate FiO2 03/02/17 08:13 99 Room Air 03/02/17 07:40 36.8 64 16 152/98 99 Room Air 03/02/17 07:20 Room Air 03/02/17 04:00 36.5 54 14 168/82 99 Room Air 03/02/17 00:10 Room Air 03/01/17 23:11 36.7 66 14 163/95 95 Room Air 170/88 03/01/17 19:48 37.5 76 18 161/82 97 Room Air 03/01/17 16:10 68 03/01/17 16:08 36.8 68 18 163/80 97 Room Air 03/01/17 16:00 Room Air 03/01/17 12:36 37.0 64 16 166/85 98 Room Air General Appearance: WD/WN, no apparent distress Head: normocephalic Neck: supple, no adenopathy Respiratory/Chest: chest non-tender, lungs clear Cardiovascular: regular rate, rhythm, no edema, no gallop, no JVD Abdomen: normal bowel sounds, non tender, non distended, soft Incision(s): clean, dry, intact Extremities: normal range of motion, non-tender, normal inspection Laboratory Results: Results Past 24 Hours Test 03/02/17 07:05 03/02/17 08:44 Range/Units White Blood Count 13.10 4.8-10.8 K/uL Red Blood Count 4.31 4.2-5.4 M/uL Hemoglobin 12.9 12.0-16.0 g/dL Hematocrit 37.8 37-47 % Mean Corpuscular Volume 87.7 80-100 fL Mean Corpuscular Hemoglobin 29.9 25-34 pg Mean Corpuscular Hemoglobin Concent 34.1 32-36 g/dl Platelet Count 217 130-400 K/uL Mean Platelet Volume 10.2 7.4-10.4 fL Neutrophils (%) (Auto) 87.4 % Lymphocytes (%) (Auto) 6.0 % Monocytes (%) (Auto) 6.4 % Eosinophils (%) (Auto) 0.0 % Basophils (%) (Auto) 0.0 % Neutrophils # (Auto) 11.44 1.4-6.5 K/uL Lymphocytes # (Auto) 0.79 1.2-3.4 K/uL Monocytes # (Auto) 0.84 0.11-0.59 K/uL Eosinophils # (Auto) 0.00 0-0.5 K/uL Basophils # (Auto) 0.00 0-0.2 K/uL RDW Standard Deviation 41.4 36.4-46.3 fL RDW Coefficient of Variation 12.9 11.5-14.5 % Immature Granulocyte % (Auto) 0.2 % Immature Granulocyte # (Auto) 0.03 0.00-0.02 K/uL Sodium Level 139 136-145 mmol/L Potassium Level 4.3 3.5-5.1 mmol/L Chloride Level 106 98-107 mmol/L Carbon Dioxide Level 28 21-32 mmol/L Anion Gap 5.0 3-11 mmol/L Blood Urea Nitrogen 10 7-18 mg/dl Creatinine 0.63 0.60-1.20 mg/dl Est Creatinine Clear Calc Drug Dose 77.1 ml/min Estimated GFR () 119.5 Estimated GFR (Non- 103.1 BUN/Creatinine Ratio 16.5 10-20 Random Glucose 128 70-99 mg/dl Calcium Level 8.8 8.5-10.1 mg/dl Assessment & Plan IMP: S/P right colectomy POD 2 pt is doing fine, continue treatment, OOB repeat labs am Will F/U,
[2017-03-02] MEDS: SODIUM CHLORIDE 0.9% 1000ML 1,000 ML IV SCH (11:05)
[2017-03-02] MEDS: PANTOprazole INJ 40 MG in SYRINGE 0 ML IV SCH (11:15)
[2017-03-02] MEDS ORDERED: METOPROLOL TARTRATE 1 MG/ML VIAL IV. SCH (12:00)
[2017-03-02] MEDS ORDERED: METOPROLOL TARTRATE 25 MG TAB PO ONE (13:00)
[2017-03-02] MEDS: DIGOXIN 0.25 MG TAB PO SCH (16:07)
[2017-03-02] MEDS: METOPROLOL TARTRATE 25 MG TAB PO SCH (21:00)
[2017-03-03] MEDS: ONDANSETRON INJ 2 MG/ML 2 ML VIAL IV PRN (02:27)
[2017-03-03 03:49] VITALS: BP 160/83; PULSE 64; TEMP 36.8; O2SAT 98
[2017-03-03] MEDS: MoRPHine SULFATE 1 MG/ML 50 ML PCA CASS IV PRN (06:57)
[2017-03-03 07:44] VITALS: BP_SYST 174; BP_SYST 177; BP_DIAS 95; PULSE 60; TEMP 36.7; O2SAT 100
[2017-03-03 08:27] LABS: BASO % 0.1 %; BASO ABS # 0.01 K/uL (0-0.2); EOS % 0.4 %; HEMATOCRIT 40.7 % (37-47); IG% 0.2 %; LYMPH % 14.9 %; LYMPH ABS # 1.41 K/uL (1.2-3.4); MEAN CELL VOLUME 88.7 fL (80-100); MEAN CORPUSCULAR HEMOGLOBIN 30.1 pg (25-34); MEAN PLATELET VOLUME 10.2 fL (7.4-10.4); MONO % 8.4 %; PLATELET COUNT 213 K/uL (130-400); RED BLOOD COUNT 4.59 M/uL (4.2-5.4); WHITE BLOOD COUNT 9.46 K/uL (4.8-10.8)
[2017-03-03 08:30] LABS: COMPLETE YES; MEAN CORPUSCULAR HGB CONC 33.9 g/dl (32-36)
[2017-03-03 08:34] LABS: BUN/CREATININE RATIO 12.7 (10-20); CREATININE 0.63 mg/dl (0.60-1.20); POTASSIUM 4.2 mmol/L (3.5-5.1)
[2017-03-03] MEDS: METOPROLOL TARTRATE 25 MG TAB PO SCH ×2 (08:44→20:44)
[2017-03-03] MEDS: D5W AND 1/2NSS + 20MEQ KCL 1,000 ML IV SCH ×2 (08:45→20:43)
[2017-03-03 08:53] LABS: CALCIUM 8.8 mg/dl (8.5-10.1)
[2017-03-03] MEDS: HEPARIN SOD 5000 UNIT/0.5 ML CARP SQ SCH ×2 (08:57→20:54)
--- NOTE | 2017-03-03 09:37 | Surgery Progress Note ---
Surgery Progress Note Date of Service Mar 03, 2017. Subjective Post OP Day: 2 + feeling well pt is doing better, passed gas, I changed the dressing, the incision is dry, drainage tube is in, Objective Vital Signs: Date Time Temp Pulse Resp B/P Pulse Ox O2 Delivery O2 Flow Rate FiO2 03/03/17 07:44 36.7 60 16 174/95 100 Room Air 177/95 03/03/17 03:49 36.8 64 16 160/83 98 Room Air 03/02/17 23:40 Room Air 03/02/17 22:57 36.7 62 16 159/83 98 Room Air 03/02/17 21:21 58 155/89 03/02/17 16:07 68 03/02/17 16:00 Room Air 03/02/17 15:43 37.0 73 17 150/89 96 Room Air 03/02/17 13:42 58 160/93 03/02/17 11:17 37.1 64 16 131/92 99 Room Air General Appearance: WD/WN Head: normocephalic Neck: supple, no adenopathy, no JVD Respiratory/Chest: chest non-tender, lungs clear Cardiovascular: regular rate, rhythm, no edema Abdomen: normal bowel sounds, non tender, non distended, soft Incision(s): clean, dry, intact Extremities: normal range of motion, non-tender, normal inspection Laboratory Results: Results Past 24 Hours Test 03/03/17 08:02 03/03/17 08:05 Range/Units Sodium Level 137 136-145 mmol/L Potassium Level 4.2 3.5-5.1 mmol/L Chloride Level 101 98-107 mmol/L Carbon Dioxide Level 29 21-32 mmol/L Anion Gap 7.0 3-11 mmol/L Blood Urea Nitrogen 8 7-18 mg/dl Creatinine 0.63 0.60-1.20 mg/dl Est Creatinine Clear Calc Drug Dose 77.1 ml/min Estimated GFR () 119.5 Estimated GFR (Non- 103.1 BUN/Creatinine Ratio 12.7 10-20 Random Glucose 113 70-99 mg/dl Calcium Level 8.8 8.5-10.1 mg/dl White Blood Count 9.46 4.8-10.8 K/uL Red Blood Count 4.59 4.2-5.4 M/uL Hemoglobin 13.8 12.0-16.0 g/dL Hematocrit 40.7 37-47 % Mean Corpuscular Volume 88.7 80-100 fL Mean Corpuscular Hemoglobin 30.1 25-34 pg Mean Corpuscular Hemoglobin Concent 33.9 32-36 g/dl Platelet Count 213 130-400 K/uL Mean Platelet Volume 10.2 7.4-10.4 fL Neutrophils (%) (Auto) 76.0 % Lymphocytes (%) (Auto) 14.9 % Monocytes (%) (Auto) 8.4 % Eosinophils (%) (Auto) 0.4 % Basophils (%) (Auto) 0.1 % Neutrophils # (Auto) 7.19 1.4-6.5 K/uL Lymphocytes # (Auto) 1.41 1.2-3.4 K/uL Monocytes # (Auto) 0.79 0.11-0.59 K/uL Eosinophils # (Auto) 0.04 0-0.5 K/uL Basophils # (Auto) 0.01 0-0.2 K/uL RDW Standard Deviation 41.6 36.4-46.3 fL RDW Coefficient of Variation 12.9 11.5-14.5 % Immature Granulocyte % (Auto) 0.2 % Immature Granulocyte # (Auto) 0.02 0.00-0.02 K/uL Assessment & Plan IMP: S/P right colectomy POD 2 claer diet, pt is doing fine, continue treatment, OOB repeat labs am Will F/U, IMP: S/P right colectomy POD 2 pt is doing fine, continue treatment, OOB repeat labs am Will F/U,
[2017-03-03 10:59] VITALS: BP 162/85; PULSE 58; TEMP 36.9; O2SAT 98
[2017-03-03] MEDS: SODIUM CHLORIDE 0.9% 1000ML 1,000 ML IV SCH (11:57)
[2017-03-03 15:27] VITALS: BP 146/76; PULSE 68; TEMP 36.9; O2SAT 98
[2017-03-03] MEDS: PANTOprazole INJ 40 MG in SYRINGE 0 ML IV SCH (16:36)
[2017-03-03] MEDS: DIGOXIN 0.25 MG TAB PO SCH (16:36)
[2017-03-03] MEDS ORDERED: NURSING VERBAL MED ORDER ONE (17:48)
[2017-03-03] MEDS ORDERED: OXYCODONE/ACETAMINOPHEN 5-325 TAB PO PRN (19:45)
[2017-03-04 05:43] LABS: BASO % 0.1 %; BASO ABS # 0.01 K/uL (0-0.2); COMPLETE YES; EOS % 1.4 %; HEMATOCRIT 40.7 % (37-47); IG% 0.1 %; LYMPH % 21.3 %; LYMPH ABS # 1.55 K/uL (1.2-3.4); MEAN CELL VOLUME 86.8 fL (80-100); MEAN CORPUSCULAR HEMOGLOBIN 28.6 pg (25-34); MEAN CORPUSCULAR HGB CONC 32.9 g/dl (32-36); MEAN PLATELET VOLUME 9.7 fL (7.4-10.4); MONO % 8.8 %; NEUT % 68.3 %; PLATELET COUNT 247 K/uL (130-400); RED BLOOD COUNT 4.69 M/uL (4.2-5.4); WHITE BLOOD COUNT 7.29 K/uL (4.8-10.8)
[2017-03-04 06:23] LABS: CALCIUM 8.9 mg/dl (8.5-10.1); CREATININE 0.6 mg/dl (0.60-1.20)
[2017-03-04 06:51] VITALS: BP 143/86; PULSE 64; TEMP 37; O2SAT 97
--- NOTE | 2017-03-04 07:13 | SURGERY PROGRESS NOTE ---
DATE: 03/04/2017 SUBJECTIVE: Nerissa is doing well. She is 4th postoperative day status post a right radical colectomy. Path report is pending. She is resting comfortably without any issues. She has been moving her bowels. She is tolerating a clear liquid diet. OBJECTIVE: Her last vitals showed a temperature of 36.9, pulse 60, respirations 16, blood pressure 146/76 and O2 sats 98 on room air. LABORATORIES: The PRP is pending this morning, hemoglobin is 13.4 and WBC 7.29. The abdomen is completely benign. The incision is free of any cellulitis. The [place] drain was removed. At this point we will increase her to a regular diet, increase her activity, discontinue the IV fluid and re-evaluate her later today if she is agreeable to it. If she feels like she wants to go home she can certainly be discharged. I will give her instructions to return to our office later on this week. She should not drive and not lift anything heavier than 10 pounds. I did mention to her the path report is still pending in presence at the room of her significant other.
[2017-03-04] MEDS ORDERED: OXYC-57 PO (08:41)
--- NOTE | 2017-03-04 08:47 | Discharge Instructions ---
Discharge Instructions Date of Service Mar 04, 2017. Admission Reason for Admission: Right Lower Quadrant Abdominal Mass Discharge Discharge Diagnosis / Problem: right hemicolectomy Discharge Goals Goal(s): Decrease discomfort, Improve disease control Activity Recommendations Activity Limitations: as noted below Lifting Limitations: no more than 10 pounds Shower/Bathe: no limitations Driving or Machine Use: resume 3 days after discharge . Instructions / Follow-Up Instructions / Follow-Up Dr. Youngblood's office later this week, -Sat, call [phone] to schedule, [address] Current Hospital Diet Patient's current hospital diet: Regular Diet Discharge Diet Recommended Diet: Regular Diet (eat light for a few days) Pending Studies Studies pending at discharge: yes List of pending studies: Pathology Medical Emergencies . Who to Call and When: Medical Emergencies: If at any time you feel your situation is an emergency, please call 911 immediately. . Non-Emergent Contact Non-Emergency issues call your: Surgeon Call Non-Emergent contact if: you have a fever, temperature is above 101.5, your pain is not controlled, wound has increased drainage, wound has increased redness . "Provider Documentation" section prepared by Giovanny Damon. . VTE Core Measure Inpt VTE Proph given/why not?: Unfractionated heparin SQ, SCD's [place] Drug Monitoring Program Search Results: no issues identified
[2017-03-04 08:54] VITALS: BP 134/83; PULSE 68
[2017-03-04] MEDS: METOPROLOL TARTRATE 25 MG TAB PO SCH (08:55)
[2017-03-04] MEDS: HEPARIN SOD 5000 UNIT/0.5 ML CARP SQ SCH (09:03)
[2017-03-04 15:00] VITALS: BP 128/77; PULSE 69; TEMP 37.1; O2SAT 95
[2017-03-04] MEDS: DIGOXIN 0.25 MG TAB PO SCH (15:53)
[2017-03-04 19:49] VITALS: BP 128/77; PULSE 68; TEMP 37.1; O2SAT 95
--- NOTE | 2017-03-05 14:44 | DISCHARGE SUMMARY ---
PRIMARY DISCHARGE DIAGNOSIS: Mucinous adenocarcinoma of the appendix. SECONDARY DISCHARGE DIAGNOSES: History of supraventricular tachycardia. PROCEDURE PERFORMED: Right radical colectomy. HOSPITAL COURSE: The patient is a 51-year-old female having outpatient evaluation of right lower quadrant pain and mass who was referred to the Emergency Department after CT scan showed a 5 cm process in the right lower quadrant, possibly a mass versus a chronically perforated appendix. She had an illness about 1 month prior and spent several days in bed. She had a colonoscopy within the past 2 years which was unremarkable. Her white count was normal. She had no acute abdominal findings and had eaten lunch after the CAT scan. She was therefore admitted to the surgery service and surgery planned for the following morning for a possible chronically perforated appendix versus a mass. She was started on IV Zosyn given oral antibiotic bowel prep as well. She was taken to the operating room as planned in the morning. A mass in the cecal area was identified and on frozen section was mucinous carcinoma. We proceeded with a right hemicolectomy. The procedure was well tolerated. She was returned to the surgical floor, continued on perioperative antibiotics and started on subQ heparin. Nasogastric tube was removed along with Vu catheter on postoperative day 1. She was started on liquid diet. She was able to tolerate over days 2 and 3. She was increasing activity. By day 4, her bowels were moving and she was able to tolerate an advancing diet during the day. [place] drain was removed from the incision. She was tolerating oral analgesics. She was stable for discharge later that evening. The incision was clean and dry. DISCHARGE INSTRUCTIONS: Discharge home. Follow up with Dr. Youngblood in 1 week. DISCHARGE MEDICATIONS: Percocet 1-2 tablets every 4 hours as needed, resume her home digoxin 215 mcg daily, daily multivitamin and calcium and vitamin D supplement. MTDD
[2017-04-18] MEDS ORDERED: HYDR-3419 PO (11:18)
== END 2017-03-04 20:30 | disposition home or self-care (01) | DRG 330 ==
LOC: C.EDB 13:19 → C.MSW 14:38
PROVIDERS: ADMIT Surgery; ATTEND Surgery
PROC: 0DTF0ZZ Resection of Right Large Intestine, Open Approach (ICD-10-PCS; principal; 2017-02-28 10:30)
DX: C18.1 Malignant neoplasm of appendix (principal); I47.1 Supraventricular tachycardia; Z79.899 Other long term (current) drug therapy; Z82.49 Family history of ischemic heart disease and other diseases of the circulatory system; N20.0 Calculus of kidney

== ENCOUNTER → 2017-02-27 | Outpatient (CLI) | payer BC ==
[~2017-02-27] MED LIST changes: +OPTIRAY 320 IV PRN
--- NOTE | 2017-02-27 12:27 | DIAGNOSTIC IMAGING REPORT ---
ADDENDUM ADDENDUM: The lesion in the right lower quadrant could also represent a chronically ruptured appendix with a complex/multiloculated abscess. Again, surgical consultation will be required. Electronically signed by: Quoc Brown M.D. 02/27/2017 12:34 PM Dictated Date/Time: 02/27/2017 12:[address] SCAN OF THE ABDOMEN AND PELVIS WITH IV CONTRAST CLINICAL HISTORY: Follow-up pelvic mass. COMPARISON STUDY: Pelvic ultrasound dated 02/22/2017. TECHNIQUE: Following the IV administration of 92 cc of Optiray 320, CT scan of the abdomen and pelvis is performed from the lung bases to the proximal femora. Images are reviewed in the axial, sagittal, and coronal planes. IV contrast was administered without complication. Automated dose control exposure was utilized. CT DOSE: 280.68 mGycm FINDINGS: Lung bases: The heart is normal in size and without pericardial effusion. The lung bases are clear. Liver: The contrast-enhanced liver is normal in size, contour, and attenuation. Hepatic cyst in the right lobe measures 1.2 cm. Additional subcentimeter hepatic hypodensities also likely represent cysts but are too small for definitive characterization. Fatty infiltration is seen adjacent to the falciform ligament. There is no intrahepatic biliary ductal dilatation. The hepatic veins and portal veins are patent. Gallbladder: Unremarkable. Spleen: Normal in size and attenuation. Pancreas: Unremarkable. Adrenal glands: Unremarkable. Kidneys: The contrast enhanced kidneys are normal in size and without hydronephrosis. The kidneys enhance symmetrically. There is a 3 mm nonobstructing calculus in the right renal pelvis seen on image #159. Abdominal vasculature: The abdominal aorta is normal in course and caliber. Bowel: The small bowel and colon are normal in course and caliber. There is mild sigmoid diverticulosis without CT evidence of acute diverticulitis. A normal appendix is not identified. There is a solid and cystic mass lesion identified in the right lower quadrant along the inferior margin of the cecum. This is best seen on axial image #284, and measures approximately 5.5 x 5.5 x 4.5 cm. Small calcifications are noted in image #304. This is discrete from the right ovary which is seen on axial image #322. Peritoneum: There is no intraperitoneal free air or abdominal ascites. A fat-containing umbilical hernia is identified. Lymphadenopathy: There are prominent subcentimeter mesenteric and retroperitoneal lymph nodes. These are not pathologically enlarged by size criteria. Pelvic viscera: The bladder is normal as imaged. The uterus is surgically absent. There are small left ovarian follicles. Skeletal structures: No lytic or blastic lesions are seen. IMPRESSION: 1. There is approximately 5.5 cm solid and cystic mass lesion identified in the right ventral pelvis along the inferior margin of the cecum. This corresponds to the mass lesion seen by ultrasound on 02/22/2017 and is concerning for neoplasm. A normal appendix is not identified, and this lesion is discrete from the right ovary. Given the location and appearance an appendiceal neoplasm is a top differential consideration. A primary colonic lesion or focus of metastatic disease could also have this appearance. Surgical consultation is advised as tissue sampling will be required for definitive characterization. 2. There is no clear evidence of metastatic disease in the abdomen or pelvis. 3. Mild sigmoid diverticulosis without CT evidence of acute diverticulitis. 4. Nonobstructing right renal calculus. 5. Additional findings as above. Electronically signed by: Quoc Brown M.D. 02/27/2017 12:25 PM Dictated Date/Time: 02/27/2017 12:14 PM
== END | disposition home or self-care (01) ==
LOC: C.CTS 11:35
PROVIDERS: ATTEND Family Medicine
DX: R19.00 Intra-abdominal and pelvic swelling, mass and lump, unspecified site (principal); N20.0 Calculus of kidney

== ENCOUNTER → 2017-04-10 | Outpatient (CLI) | payer BC ==
[~2017-04-10] MED LIST changes: +CALC-354 PO; +DIGO0.2519 PO; +HYDR-3419 PO; +MULT-506 PO; -NEOMYCIN SULFATE 500 MG TAB PO ONE; +OXYC-57 PO
--- NOTE | 2017-04-10 12:42 | DIAGNOSTIC IMAGING REPORT ---
PET/CT HISTORY: STAGING FOR CARCINOMA OF APPENDIX TECHNIQUE: PET/CT was performed from the base of the skull through the pelvis following the intravenous administration of 14.7 mCi of F18-FDG. Non-contrast CT imaging was performed over the same range without breath-hold for attenuation correction of PET images and anatomic correlation, but not for primary interpretation as it is not of standard diagnostic quality. CT DOSE: COMPARISON: Abdomen and pelvis CT 02/27/2017. FINDINGS: HEAD AND NECK: There is no FDG-avid disease or significant lymphadenopathy in the imaged portions of the head and the neck. CHEST: There is a 6 mm nodule within the medial aspect of the left lower lobe on image 89. This demonstrates mild FDG uptake with an SUV max of 2.8. There is a 5 mm left retrocardiac lymph node which demonstrates mild FDG uptake with an SUV max of 2.7. Small focus of mild FDG uptake within the left hilum with an SUV max of 2.2. This likely represents a small hilar lymph node. There is a 6 mm FDG avid AP window lymph node on image 64 with an SUV max of 2.1. ABDOMEN/PELVIS: Patient is status post a right hemicolectomy with an end to side anastomosis of the distal ileum. The blind end of the anastomosis is seen within the right lower quadrant on image 166 with adjacent suture material. This demonstrates a focal area of FDG uptake with an SUV max of 3.4 adjacent to the suture material. There is mild surrounding fat stranding with mild FDG uptake posterior/medial to the anastomosis. This may be due to postoperative change. There is mild patchy FDG uptake associated with the midline incision. An 11 mm right hepatic lobe cyst. Right-sided nephrolithiasis. No FDG avid or enlarged lymph nodes within the abdomen or pelvis. No additional sites of abnormal FDG uptake seen within the abdomen or pelvis. MUSCULOSKELETAL: There is no FDG-avid or destructive bone lesion. IMPRESSION: 1. Status post right hemicolectomy with an end to side anastomosis of the distal ileum. The blind-end of the anastomosis demonstrates a focus of moderate FDG uptake. There is also mild fat stranding and mild FDG uptake posterior and medial to the anastomosis. These findings are nonspecific given the recent surgery but likely represents postoperative change. Residual tumor cannot be excluded. Follow-up is recommended to ensure resolution of the FDG uptake. 2. A 6 mm left lower lobe FDG avid pulmonary nodule. There are also subcentimeter left hilar and mediastinal lymph nodes as described above which demonstrate mild FDG uptake. Despite the atypical location for an appendiceal carcinoma metastasis, these lesions are worrisome for metastatic disease until proven otherwise. Short-term chest CT follow-up is recommended as a focal inflammatory/infectious process could also result in a similar appearance. Electronically signed by: Willy Wright M.D. 04/10/2017 12:40 PM Dictated Date/Time: 04/10/2017 12:13 PM
== END | disposition home or self-care (01) ==
LOC: C.PET 08:57
PROVIDERS: ATTEND Internal Medicine Hematology & Oncology
DX: C18.1 Malignant neoplasm of appendix (principal); R91.1 Solitary pulmonary nodule

== ENCOUNTER → 2017-04-18 | Day surgery (SDC) | payer BC ==
[~2017-04-18] VITALS: Ht 166.4 cm; Wt 48.7 kg
[~2017-04-18] MED LIST changes: +BACITRACIN 50000 UNIT VIAL ONE; +CEFAZOLIN SOD 1 GM VIAL ONE; +FENTANYL CITRATE INJ 50 MCG/1 ML 2 ML VIAL IV PRN; +FENTANYL CITRATE INJ 50 MCG/1 ML 2 ML VIAL ONE; +HYDROCODONE/ACETAMOPHEN 5/325MG TAB PO PRN; +LACTATED RINGER'S 1000ML 1,000 ML IV PRN; +LACTATED RINGER'S 1000ML 1,000 ML IV SCH; +LIDOCAINE HCL 1% 20 ML VIAL ONE; +LIDOCAINE HCL 2% 2 ML VIAL (20MG/ML) ONE; +MIDAZOLAM HCL 1 MG/ML 2ML VIAL ONE; +MoRPHine SULFATE 2 MG/ML CARP IV PRN; +ONDANSETRON INJ 2 MG/ML 2 ML VIAL IV PRN; +PROPOFOL IV EMULSION 10 MG/ML 20 ML VIAL IV ONE
[2017-04-18 10:18] VITALS: BP 109/59; PULSE 73; TEMP 36.5; O2SAT 100; Ht 166.4 cm; Wt 48.7 kg
--- NOTE | 2017-04-18 11:18 | History and Physical ---
History & Physical Date & Time of Service: Apr 18, 2017 at 11:12 Chief Complaint: Mucinous Carcinoma Of Appendix Primary Care Physician: Quoc Slaon M.D. History of Present Illness 52 y/o female 6 weeks s/p right colectomy for mucinous carcinoma of appendix presents now for A-port placement to begin chemo next week. Has recovered well since surgery, no other concerns or changes in history. Past Medical/Surgical History Past Medical: mucinous carcinoma Surgical history: Pelvic exploration followed later by Hysterectomy Right colectomy 02/25 Family History FH: cancer FH: hypertension Social History Smoking Status: Never Smoker Marital Status: Occupational Status: employed Allergies Coded Allergies: No Known Allergies (Unverified , 04/18/17) Home Medications Scheduled Calcium Carbonate-Cholecalcife (Caltrate 600+D), 1 TAB PO DAILY Digoxin (Digox), 1 TAB PO HS Multivitamin (Multivitamin), 1 TAB PO DAILY Review of Systems Constitutional: No weight loss, No fatigue Respiratory: No cough, No shortness of breath Cardiovascular: No chest pain Abdomen: No pain, No nausea, No vomiting Physical Exam Vital Signs Date Time Temp Pulse Resp B/P (MAP) Pulse Ox O2 Delivery O2 Flow Rate FiO2 04/18/17 10:18 36.5 73 18 109/59 (76) 100 Room Air General Appearance: WD/WN, no apparent distress ENT: normal ENT inspection Respiratory/Chest: lungs clear, normal breath sounds Cardiovascular: regular rate, rhythm Abdomen/GI: non tender, soft Skin: normal color, warm/dry Impression Assessment and Plan mucinous carcinoma A-port placement today by Dr. Youngblood. Risks of bleeding, infection, and pneumothorax were discussed.
--- NOTE | 2017-04-18 11:21 | Discharge Instructions ---
Discharge Instructions Date of Service Apr 18, 2017. Visit Reason for Visit: Mucinous Carcinoma Of Appendix Discharge Discharge Diagnosis / Problem: A-port placement Discharge Goals Goal(s): Improve disease control Activity Recommendations Activity Limitations: as noted below Shower/Bathe: tomorrow Anesthesia . Post Anesthesia Instructions: If you have had General Anesthesia or IV Sedation: * Do not drive today. * Resume driving when surgeon permits. * Do not make important decisions or sign legal documents today. * Call surgeon for: 1. Temperature elevations greater than 101 degrees F. 2. Uncontrollable pain. 3. Excessive bleeding. 4. Persistent nausea and vomiting. 5. Medication intolerance (nausea, vomiting or rash). * For nausea and vomiting use only clear liquids such as: tea, soda, bouillon until nausea subsides, then gradually increase diet as tolerated. * If you have any concerns or questions, call your surgeon's office. If physician is unavailable and it is an emergency, call 911 or go to the nearest emergency room. . Instructions / Follow-Up Instructions / Follow-Up Dr. Youngblood's office as needed for any questions or concerns, [phone] Ok for port to be accessed for chemo Diet Recommendations Recommended Home Diet: no limitations Pending Studies Studies pending at discharge: no Medical Emergencies . Who to Call and When: Medical Emergencies: If at any time you feel your situation is an emergency, please call 911 immediately. . Non-Emergent Contact Non-Emergency issues call your: Surgeon Call Non-Emergent contact if: you have a fever, temperature is above 101.5, your pain is not controlled, wound has increased redness, wound has increased pain . . "Provider Documentation" section prepared by Giovanny Damon. .
--- NOTE | 2017-04-18 12:07 | History & Physical Bridge Note ---
H&P Re-Evaluation Bridge Note: pt seen permit signed friend at [facility] I have examined the patient, reviewed the History & Physical and in the interval since the performance of the History & Physical I have noted the following changes of clinical significance: No changes noted
--- NOTE | 2017-04-18 13:03 | [facility] Post Operative Brief Note ---
Immediate Operative Summary Operative Date Apr 18, 2017. Pre-Operative Diagnosis Appendix Cancer-needs IV access for Chemotherapy Post-Operative Diagnosis Appendix Cancer-needs IV access for Chemotherapy Procedure(s) Performed Infusaport Insertion into Left Subclavian Surgeon Dr. Youngblood Vegetable Thinner Surgeon(s) none Estimated Blood Loss 3 ML Findings as preop Specimens None per Surgeon Anesthesia .5% marcaine plain(6cc) and iv sedation
--- NOTE | 2017-04-18 13:19 | OPERATIVE REPORT ---
DATE OF OPERATION: 04/18/2017 SURGEON: Dr. Youngblood. 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 POSTOPERATIVE DIAGNOSIS: Same. PROCEDURE: MRI compatible port through the left subclavian. SUMMARY: The patient was brought into the operating room. A roll placed underneath her shoulders. Systemic antibiotics given. The left chest and neck was prepped with Betadine scrubbing solution and properly draped. Placing the patient in Trendelenburg position and then we used local anesthetic 0.5% Marcaine plain, a total of 6 mL used throughout the procedure. We first infiltrated the angle of the clavicle, sufficient enough that we percutaneously accessed the subclavian vein one single passage without any difficulty. Guidewire followed fluoroscopically superior vena cava and then below this, we made about 2 inches below another incision approximately an inch and a half long, deepened through subcutaneous tissue onto the pectoralis on top of the breast at 12 o'clock position and created a pocket that would accommodate the reservoir of the MRI port. At this point, the guidewire was then brought in from the initial percutaneous size of this near the pocket that we had created. A catheter was brought up, we placed an introducer followed by the catheter, fluoroscopically positioned in towards the superior vena cava, right atrium. We then placed a black bolster on the catheter, cut it appropriately and placed it onto the reservoir, secured it in place and we aspirated and flushed easily. We then sutured the reservoir and a previously made pocket with 3-0 nylon sutures at its most and then 2-0 Dexon subcutaneous, 4-0 Monocryl subcuticular, Steri-Strips applied. Prior to leaving the room, we reimaged the system. We aspirated and flushed, which went quite easily and the catheter was in appropriate position. I attest to the content of the Intraoperative Record and any orders documented therein. Any exception s are noted below.
--- NOTE | 2017-04-18 13:22 | Anesthesiology Progress Note ---
Anesthesia Post Op Note Date & Time Apr 18, 2017 at 13:21 Vital Signs Pain Intensity: 1 Vital Signs Past 12 Hours Date Time Temp Pulse Resp B/P (MAP) Pulse Ox O2 Delivery O2 Flow Rate FiO2 04/18/17 13:15 56 14 124/75 100 Mask 10 04/18/17 13:05 59 14 134/82 100 Mask 10 04/18/17 12:58 36.0 74 20 137/80 100 Mask 10 04/18/17 10:18 36.5 73 18 109/59 (76) 100 Room Air Notes Mental Status: alert / awake / arousable, participated in evaluation Pt Amnestic to Procedure: No (recall as expected) Nausea / Vomiting: adequately controlled Pain: adequately controlled Airway Patency, RR, SpO2: stable & adequate BP & HR: stable & adequate Hydration State: stable & adequate Anesthetic Complications: no major complications apparent
--- NOTE | 2017-04-18 13:23 | DIAGNOSTIC IMAGING REPORT ---
CHEST ONE VIEW PORTABLE CLINICAL HISTORY: port placement COMPARISON STUDY: 02/27/2017 FINDINGS: The cardiac and mediastinal contours are normal. There is no evidence of focal pulmonary consolidation. There is no evidence of failure. No pleural effusions are visualized.[ There is a left subclavian A-Port catheter. The tip projects over the superior vena cava. There is no pneumothorax. IMPRESSION: No pneumothorax status post placement of a left subclavian A-Port catheter. Electronically signed by: Dusty Gonsales M.D. 04/18/2017 1:22 PM Dictated Date/Time: 04/18/2017 1:21 PM
[2017-04-18 13:30] VITALS: BP 121/61; PULSE 58; TEMP 36.9; O2SAT 100
[2017-04-18 14:00] VITALS: BP 136/67; PULSE 62; TEMP 36.7; O2SAT 100
== END | disposition home or self-care (01) ==
LOC: C.ACU 09:52
PROVIDERS: ATTEND Surgery
DX: C18.1 Malignant neoplasm of appendix (principal); Z90.49 Acquired absence of other specified parts of digestive tract; Z79.899 Other long term (current) drug therapy

== ENCOUNTER → 2017-09-30 | Outpatient (CLI) | payer OTHER ==
[~2017-09-30] MED LIST changes: -BACITRACIN 50000 UNIT VIAL ONE; -CEFAZOLIN SOD 1 GM VIAL ONE; -FENTANYL CITRATE INJ 50 MCG/1 ML 2 ML VIAL IV PRN; -FENTANYL CITRATE INJ 50 MCG/1 ML 2 ML VIAL ONE; -HYDROCODONE/ACETAMOPHEN 5/325MG TAB PO PRN; -LACTATED RINGER'S 1000ML 1,000 ML IV PRN; -LACTATED RINGER'S 1000ML 1,000 ML IV SCH; -LIDOCAINE HCL 1% 20 ML VIAL ONE; -LIDOCAINE HCL 2% 2 ML VIAL (20MG/ML) ONE; -MIDAZOLAM HCL 1 MG/ML 2ML VIAL ONE; -MoRPHine SULFATE 2 MG/ML CARP IV PRN; -ONDANSETRON INJ 2 MG/ML 2 ML VIAL IV PRN; +OPTIRAY 320 IV PRN; -OXYC-57 PO; -PROPOFOL IV EMULSION 10 MG/ML 20 ML VIAL IV ONE
--- NOTE | 2017-09-30 15:21 | DIAGNOSTIC IMAGING REPORT ---
CT OF THE ABDOMEN AND PELVIS WITH CONTRAST CLINICAL HISTORY: Carcinoma of appendix. COMPARISON STUDY: CT of the abdomen and pelvis February 27, 2017 and PET/CT April 10, 2017. TECHNIQUE: Following IV administration of 120 mL of Optiray-320, axial images of the abdomen and pelvis were obtained from the lung bases to the proximal femurs. Images were reviewed in the axial, sagittal, and coronal planes. IV contrast was administered without complication. A dose lowering technique was utilized adhering to the principles of ALARA. Oral contrast was administered. CT DOSE: 266.29 mGy.cm FINDINGS: Visualized portions of the lower chest demonstrate several nodules within the medial basilar segment of the left lower lobe that measure up to 6 mm. These are similar to PET/CT of April 10, 2017. A few adjacent tiny probably nodules may be increased since prior exam. A few hepatic cysts are present. The spleen, adrenal glands, kidneys and pancreas are normal with exception of a 4 mm right renal catheter was. There is no evidence for a bowel obstruction. Postsurgical findings within the right colon are noted. There is mild soft tissue thickening and adjacent infiltration within the resection bed. This is similar to PET/CT of April 10, 2017. No ascites is present. Caliber and wall thickness of small and large bowel are normal. No enlarged abdominal or pelvic lymph nodes are present. There are no suspicious osseous lesions. IMPRESSION: 1. Persistent mild soft tissue thickening and adjacent infiltration within the operative bed status post appendectomy. No significant change since PET/CT of April 10, 2017. This could reflect postsurgical change. However, residual/recurrent tumor could appear similar and short-term imaging follow-up is recommended. 2. Several left lower lobe pulmonary nodules which measure up to 6 mm. The largest nodules are unchanged. A few smaller adjacent nodules have slightly increased in size. These nodules are indeterminate. A follow-up chest CT in 6 months is recommended. Electronically signed by: John Gutierrez M.D. 09/30/2017 3:19 PM Dictated Date/Time: 09/30/2017 1:48 PM
== END | disposition home or self-care (01) ==
LOC: C.CTS 11:49
PROVIDERS: ATTEND Internal Medicine Hematology & Oncology
DX: C18.1 Malignant neoplasm of appendix (principal); Z90.89 Acquired absence of other organs; R91.8 Other nonspecific abnormal finding of lung field

== ENCOUNTER → 2018-01-14 | Outpatient (CLI) | payer OTHER ==
[~2018-01-14] MED LIST changes: -HYDR-3419 PO; -OPTIRAY 320 IV PRN
== END | disposition home or self-care (01) ==
LOC: C.LABMFLN 17:56
PROVIDERS: ATTEND Physician Assistant
DX: R39.9 Unspecified symptoms and signs involving the genitourinary system (principal)

== ENCOUNTER → 2018-03-03 | Outpatient (CLI) | payer BC ==
--- NOTE | 2018-03-03 12:45 | DIAGNOSTIC IMAGING REPORT ---
PET/CT CLINICAL HISTORY: Colorectal carcinoma. COMPARISON STUDY: PET/CT dated 04/10/2017. Abdominal CT dated 09/30/2017. TECHNIQUE: One hour following the IV administration of 11.94 mCi of F-18 FDG, PET/CT examination was performed from the orbital meatal line through the bony pelvis. Noncontrast CT is performed for the purposes of anatomic correlation and attenuation correction. Note that this does not reflect a diagnostic CT examination. Images were reviewed on a separate [employer] independent workstation. Fused images were obtained. Standard uptake values reported are maximum values within the region of interest expressed in gm/mL. FINDINGS: PET FINDINGS: Head and neck: There is expected physiologic activity within the visualized brain parenchyma at the skull base and the salivary glands. Thorax: Evaluation of the thorax demonstrates expected physiologic myocardial activity. Again seen is a 6 mm nodular density in the left lower lobe on image #100. This demonstrates low level FDG activity of maximum SUV of 2.3. There is an intensely FDG avid right hilar node seen on image #78. This measures approximately 2.1 x 1.7 cm and demonstrates a maximum SUV of 15.1. A mildly FDG avid hilar node is seen on image #83. This is not well delineated on the low-dose CT images and demonstrates a maximum SUV of 2.3. FDG avid precarinal nodes are seen image #76. These demonstrate a maximum SUV of 5.5. Additional tiny FDG avid mediastinal and right suprahilar nodes are identified (image #67, image #71, image #61). Abdomen and pelvis: There is expected activity within the liver, spleen, kidneys, renal collecting system, and bladder. Low-level bowel activity is likely within physical limits. Mild soft tissue thickening is again seen in the right lower quadrant adjacent to the anastomotic site on axial image 173. This demonstrates low level FDG activity with a maximum SUV of 2.4. Unenhanced CT images: The visualized brain parenchyma the skull base is normal in appearance. The bony orbits are intact and orbital contents are normal as visualized. A small retention cyst is noted in the left maxillary antrum. The remaining visualized paranasal sinuses and the mastoid air cells are clear. The salivary and thyroid glands are within normal limits. No cervical lymphadenopathy is identified. A left subclavian central venous infusion port is in place. No airspace consolidation or pleural effusion is identified. The thoracic aorta is normal in caliber. The heart is normal in size and there is trace pericardial fluid. No axillary adenopathy is seen. 11 mm cyst is noted in the right hepatic lobe. Additional subcentimeter hepatic hypodensities also likely represent cysts but are too small for definitive characterization. These are unchanged from prior studies. The unenhanced spleen, gallbladder, pancreas, adrenal glands are grossly normal. There is a 3 mm nonobstructing right renal calculus. The kidneys are normal in size and without hydronephrosis. The abdominal aorta is normal in caliber. There are postoperative changes from right colon resection with colocolonic anastomosis. No bowel obstruction is seen. There is no abdominal, pelvic, or inguinal lymphadenopathy. No intraperitoneal free air or abdominal ascites is seen. The bladder is normal as visualized. Uterus is surgically absent. No adnexal lesion is seen. The skeletal structures are osteopenic. No lytic or blastic lesion is identified. Mild degenerative changes noted in the spine. IMPRESSION: 1. Again seen are postoperative changes from right colon resection with colocolonic anastomosis. No bowel obstruction is seen. 2. Mild soft tissue thickening is again seen adjacent to the anastomotic site in the right lower quadrant. This demonstrates low level FDG and remains nonspecific, possibly representing postoperative change/scar. Neoplasm is considered less likely but would be impossible to exclude. 3. Progressive FDG avid mediastinal and hilar adenopathy as compared to 04/10/2017. The appearance is concerning for neoplasm, and although metastatic disease could have this appearance this is atypical for colon cancer. 4. A 6 mm nodule or cluster of nodules is again seen in the left lower lobe. This demonstrates FDG activity and is also concerning for neoplasm. This has not significantly changed from 09/30/2017. 5. Nonobstructing right renal calculus. 6. Additional findings as above. Electronically signed by: Quoc Brown M.D. 03/03/2018 12:43 PM Dictated Date/Time: 03/03/2018 12:16 PM
== END | disposition home or self-care (01) ==
LOC: C.PET 08:47
PROVIDERS: ATTEND Internal Medicine Hematology & Oncology
DX: C18.1 Malignant neoplasm of appendix (principal)

== ENCOUNTER → 2018-03-11 | Outpatient (CLI) | payer BC | END | disposition home or self-care (01) | LOC: C.CPL 10:39 | PROVIDERS: ATTEND Surgery | DX: R59.0 Localized enlarged lymph nodes (principal) ==

== ENCOUNTER → 2018-03-14 | Day surgery (SDC) | payer BC ==
[2018-03-13 14:49] VITALS: BMI 17.0
[~2018-03-14] VITALS: Ht 167.6 cm; Wt 49.1 kg
[~2018-03-14] MED LIST changes: +ATROPINE SULFATE 0.1 MG/ML 5ML SYR IV PRN; +CEFAZOLIN SOD 1 GM VIAL ONE; +DEXAMETHASONE SOD INJ 4 MG/ML VIAL ONE; +EpHEDrine SULFATE INJ 50 MG/ML AMP IV PRN; +EpHEDrine SULFATE INJ 50 MG/ML AMP ONE; +FENTANYL CITRATE INJ 50 MCG/1 ML 2 ML VIAL IV PRN; +FENTANYL CITRATE INJ 50 MCG/1 ML 2 ML VIAL ONE; +GLYCOPYRROLATE INJ 0.2 MG/ML VIAL ONE; +LACTATED RINGER'S 1000ML 1,000 ML IV SCH; +LIDOCAINE HCL 2% 2 ML VIAL (20MG/ML) ONE; +MIDAZOLAM HCL 1 MG/ML 2ML VIAL ONE; +MoRPHine SULFATE 2 MG/ML CARP IV PRN; +NEOSTIGMINE METHYLSULFATE 5 MG/5 ML SYR ONE; +ONDANSETRON INJ 2 MG/ML 2 ML VIAL IV PRN; +ONDANSETRON INJ 2 MG/ML 2 ML VIAL ONE; +PROPOFOL IV EMULSION 10 MG/ML 20 ML VIAL ONE; +ROCURONIUM BROMIDE 10 MG/ML 5 ML VIAL ONE; +TRAMADOL HCL 50 MG TAB PO PRN; +ULT/50 PO
[2018-03-14 09:19] VITALS: BP 117/41; PULSE 60; TEMP 36.7; O2SAT 100; Ht 167.6 cm; Wt 49.1 kg
[2018-03-14 09:29] LABS: HEMATOCRIT 39.3 % (37-47); HEMOGLOBIN 13.6 g/dL (12.0-16.0); MEAN CELL VOLUME 87.7 fL (80-100); MEAN CORPUSCULAR HEMOGLOBIN 30.4 pg (25-34); MEAN PLATELET VOLUME 9.2 fL (7.4-10.4); PLATELET COUNT 123 K/uL (130-400); RED CELL DISTRIBUTION WIDTH CV 13.1 % (11.5-14.5); RED CELL DISTRIBUTION WIDTH SD 42.3 fL (36.4-46.3); WHITE BLOOD COUNT 2.46 K/uL (4.8-10.8)
[2018-03-14 09:37] LABS: MEAN CORPUSCULAR HGB CONC 34.6 g/dl (32-36)
[2018-03-14 09:54] LABS: CALCIUM 8.8 mg/dl (8.5-10.1); CREATININE 0.83 mg/dl (0.60-1.20); POTASSIUM 3.8 mmol/L (3.5-5.1)
--- NOTE | 2018-03-14 11:31 | History & Physical Bridge Note ---
H&P Re-Evaluation Bridge Note: I have examined the patient, reviewed the History & Physical and in the interval since the performance of the History & Physical I have noted the following changes of clinical significance: No changes noted
--- NOTE | 2018-03-14 12:58 | [facility] Post Operative Brief Note ---
Immediate Operative Summary Operative Date March 14, 2018. Pre-Operative Diagnosis Mediastinal adenopathy Post-Operative Diagnosis Same Procedure(s) Performed Video Mediastinoscopy with Biopsy Surgeon Dr Clay Coil Winder Surgeon(s) Benitez Vargas PA-C Estimated Blood Loss 20ml Findings Consistent with Post-Op Diagnosis Specimens Frozen section #1 R2 lymph node sent out at 1235 Frozen section #2 R4 lymph node sent out at 1238 Frozen section #3 additional R4 lymph nodes sent out at 1250 Frozen section #4 R10 lymph node sent out at A. anterior cervical lymph node Anesthesia Type General
--- NOTE | 2018-03-14 13:09 | Discharge Instructions ---
Discharge Instructions Date of Service March 14, 2018. Visit Reason for Visit: Mediastinal Adenopathy Discharge Discharge Diagnosis / Problem: Mediastinal Adenopathy Discharge Goals Goal(s): Learn about illness Activity Recommendations Activity Limitations: resume your previous activity (in 24 hours) Anesthesia . Post Anesthesia Instructions: If you have had General Anesthesia or IV Sedation: * Do not drive today. * Resume driving when surgeon permits. * Do not make important decisions or sign legal documents today. * Call surgeon for: 1. Temperature elevations greater than 101 degrees F. 2. Uncontrollable pain. 3. Excessive bleeding. 4. Persistent nausea and vomiting. 5. Medication intolerance (nausea, vomiting or rash). * For nausea and vomiting use only clear liquids such as: tea, soda, bouillon until nausea subsides, then gradually increase diet as tolerated. * If you have any concerns or questions, call your surgeon's office. If physician is unavailable and it is an emergency, call 911 or go to the nearest emergency room. . Instructions / Follow-Up Instructions / Follow-Up 1. You may remove dressing in 3 days and shower thereafter. No tub baths. 2. Keep your scheduled appointment with Dr. Clay on March 20, 2018 @ 9:30. Diet Recommendations Recommended Home Diet: resume previous diet Procedures Procedures Performed: Video Mediastinoscopy with Biopsy Pending Studies Studies pending at discharge: no Medical Emergencies . Who to Call and When: Medical Emergencies: If at any time you feel your situation is an emergency, please call 911 immediately. . Non-Emergent Contact Non-Emergency issues call your: Surgeon Call Non-Emergent contact if: you have a fever, your pain is not controlled, wound has increased drainage . . "Provider Documentation" section prepared by Alexy Vargas. .
--- NOTE | 2018-03-14 13:51 | DIAGNOSTIC IMAGING REPORT ---
CHEST ONE VIEW PORTABLE CLINICAL HISTORY: Mediastinoscopy. COMPARISON STUDY: PET/CT March 03, 2018. FINDINGS: A left subclavian [id number] is in place. There is no pneumothorax or pleural effusion. Levoscoliosis of the lower thoracic spine is entirely noted. Nipple shadow projects over the right lower lung. Cardiomediastinal silhouette is unremarkable. IMPRESSION: No acute cardiopulmonary findings. No pneumothorax. Electronically signed by: John Gutierrez M.D. 03/14/2018 1:49 PM Dictated Date/Time: 03/14/2018 1:48 PM
[2018-03-14 13:55] VITALS: BP 127/64; PULSE 75; TEMP 36.6; O2SAT 95
--- NOTE | 2018-03-14 14:13 | Anesthesiology Progress Note ---
Anesthesia Post Op Note Date & Time March 14, 2018 at 14:13 Vital Signs Pain Intensity: 2 Vital Signs Past 12 Hours Date Time Temp Pulse Resp B/P (MAP) Pulse Ox O2 Delivery O2 Flow Rate FiO2 03/14/18 13:50 56 18 128/67 94 Room Air 03/14/18 13:40 36.9 62 13 128/65 96 Room Air 03/14/18 13:30 62 12 126/64 100 Oxymask 10 03/14/18 13:20 80 17 123/65 100 Oxymask 10 03/14/18 13:12 36.2 96 27 133/80 100 Oxymask 10 03/14/18 09:19 36.7 60 16 117/41 (66) 100 Room Air Notes Mental Status: alert / awake / arousable, participated in evaluation Pt Amnestic to Procedure: Yes Nausea / Vomiting: adequately controlled Pain: adequately controlled Airway Patency, RR, SpO2: stable & adequate BP & HR: stable & adequate Hydration State: stable & adequate Anesthetic Complications: no major complications apparent
[2018-03-14 14:25] VITALS: BP 119/57; PULSE 78; TEMP 36.6; O2SAT 95
[2018-03-14 14:55] VITALS: BP 121/58; PULSE 76; TEMP 36.6; O2SAT 95
[2018-03-14 15:45] VITALS: BP 119/77; PULSE 88; TEMP 36.6; O2SAT 95
--- NOTE | 2018-03-14 17:47 | OPERATIVE REPORT ---
DATE OF OPERATION: 03/14/2018 PREOPERATIVE DIAGNOSIS: Hypermetabolic lymphadenopathy. POSTOPERATIVE DIAGNOSES: 1. Granulomatous lymphadenopathy at mediastinum. 2. History of appendiceal cancer. SURGEON: Armando Clay MD TRANSFER TABLE OPERATOR: BONNY Arteaga (Ms. Vargas was present for the entire case and helped manage the scope and also close the skin incision at the conclusion). PROCEDURE: Video mediastinoscopy. ANESTHESIA: General anesthesia with endotracheal intubation. 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 It was felt that she had a perforated appendix. Dr. Youngblood performed a right hemicolectomy. Her nodes were negative. She has been treated with chemotherapy. She had a CT scan that was performed which showed no real evidence of any abnormalities. However, a PET scan was done. She had hypermetabolic mediastinal and right hilar nodes. This was of course quite concerning. I saw the patient this week and we elected to proceed with video mediastinoscopy today. On 03/14/2018, the patient underwent uncomplicated video mediastinoscopy. I biopsied a cervical node going in that was anterior and then which could be labeled a level 1. I then biopsied a level 2, several level 4s and level 10 on the right. Frozen section of these came back as granulomatous disease. We saw no evidence of a malignancy. She tolerated it well. DESCRIPTION OF PROCEDURE: The patient brought to the operating room and laid in supine position. General anesthesia induced and endotracheal intubation was performed. She was prepped and draped in usual sterile fashion. Following appropriate timeout and given prophylactic antibiotics, an incision was made 1 fingerbreadth above the sternal notch. Sharp and blunt dissection was used to dissect down to the pretracheal plane which was developed in the midline and the strap muscles. I bluntly developed this digitally and then placed a video mediastinoscope. This mainly brought me on to a node. It was actually just inside the incision along the anterior trachea. It appeared to be a level 1 node. I removed this in its entirety. It was small and fleshy in appearance. I then removed a rather large level 2 node which was harder and wider. There were multiple level 4 nodes which were large and big and they tend to be rather fleshy in appearance. I biopsied these. I identified the azygos vein. I then went down to the right level 10 node and biopsied this also. Really it was not much in the way of level 7 and this did not light up on the PET scan. I carefully and judiciously used cautery to control bleeding. I did not biopsy anything on the left. I slowly withdrew the video mediastinoscope. A 3-0 Vicryl was used to close the strap muscles and then 4-0 Monocryl was used in running subcuticular fashion to approximate the wound edges. She tolerated it quite well and was transported back to the postanesthesia care unit in stable condition after being extubated. I attest to the content of the Intraoperative Record and any orders documented therein. Any exception s are noted below.
== END | disposition home or self-care (01) ==
LOC: C.ACU 08:47
PROVIDERS: ATTEND Surgery
DX: R59.0 Localized enlarged lymph nodes (principal); I88.0 Nonspecific mesenteric lymphadenitis; Z85.09 Personal history of malignant neoplasm of other digestive organs; Z92.21 Personal history of antineoplastic chemotherapy; Z82.49 Family history of ischemic heart disease and other diseases of the circulatory system; I27.20 Pulmonary hypertension, unspecified

== ENCOUNTER → 2018-06-26 | Day surgery (SDC) | payer BC ==
[2018-06-23 15:30] VITALS: BMI 18.0
[~2018-06-26] VITALS: Ht 167.6 cm; Wt 49.8 kg
[~2018-06-26] MED LIST changes: -CEFAZOLIN SOD 1 GM VIAL ONE; -DEXAMETHASONE SOD INJ 4 MG/ML VIAL ONE; -EpHEDrine SULFATE INJ 50 MG/ML AMP ONE; -FENTANYL CITRATE INJ 50 MCG/1 ML 2 ML VIAL ONE; -GLYCOPYRROLATE INJ 0.2 MG/ML VIAL ONE; +HYDROmorphone INJ 0.5 MG/0.5 ML SYR IV PRN; +KETOROLAC TROMETHAMINE 30 MG/ML VIAL ONE; +LIDOCAINE HCL 1% 20 ML VIAL ONE; -MoRPHine SULFATE 2 MG/ML CARP IV PRN; -NEOSTIGMINE METHYLSULFATE 5 MG/5 ML SYR ONE; +OXYCODONE/ACETAMINOPHEN 5-325 TAB PO PRN; +PROMETHAZINE HCL INJ 6.25 MG in SODIUM CHLORIDE 0.9% 50ML 50 ML IV PRN; -ROCURONIUM BROMIDE 10 MG/ML 5 ML VIAL ONE; +SODIUM CHLORIDE 0.9% 1000ML 1,000 ML IV SCH; -TRAMADOL HCL 50 MG TAB PO PRN; -ULT/50 PO
[2018-06-26 06:44] VITALS: BP 125/64; PULSE 61; TEMP 36.5; O2SAT 100; Ht 167.6 cm; Wt 49.8 kg
--- NOTE | 2018-06-26 06:47 | History & Physical Bridge Note ---
H&P Re-Evaluation Bridge Note: I have examined the patient, reviewed the History & Physical and in the interval since the performance of the History & Physical I have noted the following changes of clinical significance: No changes noted all questions answered to be here later
--- NOTE | 2018-06-26 08:06 | Discharge Instructions ---
Discharge Instructions Date of Service Jun 26, 2018. Visit Reason for Visit: Mucinous Adenocarcinoma Of Appendix, Port Cath In Discharge Discharge Diagnosis / Problem: port removal Discharge Goals Goal(s): Specific goals Activity Recommendations Activity Limitations: resume your previous activity Shower/Bathe: tomorrow Driving or Machine Use: resume 1 day after discharge Anesthesia . Post Anesthesia Instructions: If you have had General Anesthesia or IV Sedation: * Do not drive today. * Resume driving when surgeon permits. * Do not make important decisions or sign legal documents today. * Call surgeon for: 1. Temperature elevations greater than 101 degrees F. 2. Uncontrollable pain. 3. Excessive bleeding. 4. Persistent nausea and vomiting. 5. Medication intolerance (nausea, vomiting or rash). * For nausea and vomiting use only clear liquids such as: tea, soda, bouillon until nausea subsides, then gradually increase diet as tolerated. * If you have any concerns or questions, call your surgeon's office. If physician is unavailable and it is an emergency, call 911 or go to the nearest emergency room. . Instructions / Follow-Up Instructions / Follow-Up Dr. Youngblood in 1 week as needed, call [phone] if you have any concerns about your incision You can take Tylenol as directed or ibuprofen 600 mg every 6 hours as needed for pain Diet Recommendations Recommended Home Diet: no limitations Pending Studies Studies pending at discharge: no Medical Emergencies . Who to Call and When: Medical Emergencies: If at any time you feel your situation is an emergency, please call 911 immediately. . Non-Emergent Contact Non-Emergency issues call your: Surgeon Call Non-Emergent contact if: you have a fever, temperature is above 101.5, your pain is not controlled, wound has increased redness, wound has increased pain . . "Provider Documentation" section prepared by Giovanny Damon. .
--- NOTE | 2018-06-26 08:57 | [facility] Post Operative Brief Note ---
Immediate Operative Summary Operative Date Jun 26, 2018. Pre-Operative Diagnosis Exhausted port removal s/p chemo Post-Operative Diagnosis Same Procedure(s) Performed Removal of A-Port Surgeon Dr. Abel Youngblood Triage Assistant Surgeon(s) 0 Estimated Blood Loss 3ml Findings See Below as preop Specimens A.) Explanted A-Port Anesthesia Type MAC
--- NOTE | 2018-06-26 09:20 | Anesthesiology Progress Note ---
Anesthesia Post Op Note Date & Time Jun 26, 2018 at 09:20 Vital Signs Pain Intensity: 0 Vital Signs Past 12 Hours Date Time Temp Pulse Resp B/P (MAP) Pulse Ox O2 Delivery O2 Flow Rate FiO2 06/26/18 09:10 60 19 116/76 100 Room Air 06/26/18 09:00 37.0 64 19 107/75 100 Oxymask 10 06/26/18 06:44 36.5 61 16 125/64 (84) 100 Room Air Notes Mental Status: alert / awake / arousable, participated in evaluation Pt Amnestic to Procedure: Yes Nausea / Vomiting: adequately controlled Pain: adequately controlled Airway Patency, RR, SpO2: stable & adequate BP & HR: stable & adequate Hydration State: stable & adequate Anesthetic Complications: no major complications apparent
[2018-06-26 09:25] VITALS: BP 99/57; PULSE 59; TEMP 36.5; O2SAT 100
[2018-06-26 09:55] VITALS: BP 102/62; PULSE 64; TEMP 36.5; O2SAT 100
--- NOTE | 2018-06-26 13:06 | OPERATIVE REPORT ---
DATE OF OPERATION: 06/26/2018 SURGEON: Abel Youngblood MD PREOPERATIVE DIAGNOSIS: Exhausted A-port left subclavian. POSTOPERATIVE DIAGNOSIS: Exhausted A-port left subclavian. PROCEDURE: Removal exhausted A-port left subclavian. SUMMARY: The patient was brought into the operating theatre. Left chest and neck area was prepped with Betadine solution and properly draped. IV sedation was given. Local anesthetic 1% Xylocaine with epinephrine was used to infiltrate on the scar above the port reservoir and around the reservoir. We made an elliptical incision around the scar itself, removing a little keloid formation with subcutaneous tissue. We then meticulously dissected out the 3-0 Prolene sutures that were holding in the port and its core and the scar tissue around the black bolster and the catheter was easily appreciated. The capsule came off nicely around the catheter. We held pressure on the subclavian areas, we stripped later this port and the catheter intact. We held pressure for approximately 5 minutes, hemostasis and the cavity was controlled with cautery and then closed with 2-0 Dexon running suture and 4-0 Monocryl. Steri-Strips applied. The procedure was tolerated well by the patient. Minimal blood loss. The patient was taken to recovery room in good condition. I attest to the content of the Intraoperative Record and any orders documented therein. Any exception s are noted below.
== END | disposition home or self-care (01) ==
LOC: C.ACU 06:33
PROVIDERS: ATTEND Surgery
DX: Z45.2 Encounter for adjustment and management of vascular access device (principal); C18.1 Malignant neoplasm of appendix; I47.1 Supraventricular tachycardia; Z90.49 Acquired absence of other specified parts of digestive tract